=== PATIENT | female | born 1935 | race Caucasian/White ===

== ENCOUNTER 2022-10-19 13:48 | Emergency (ER) | payer MEDICARE, SELFPAY ==
[2022-10-19 14:05] VITALS: BP 137/77; PULSE 85; RESP 16; TEMP 37.1; O2SAT 93
--- NOTE | 2022-10-19 15:10 | ED.GENADUL_ITS ---
Discharge Plan Disposition Patient Disposition: Home Condition: Stable Discharge Details Clinical Impression: Well adult health check Primary Care Provider: Hortencia Jordan ED Provider: Dianna Delgado Home Meds and New Rx's Prescriptions: New azithromycin 250 mg tablet See Rx Instructions .ROUTE .COMPLEX 6 Days Qty: 6 0RF Rx Instructions: For 250 mg dose pack: take 500 mg today (day 1), then 250 mg for 4 days (days 2-5) Discharge Instructions Instructions: Cold Symptoms (ED) Additional Instructions: Only take the antibiotics if you begin having symptoms. Take [id number] vitamin C, multivitamin including zinc. Follow up with primary care provider in 3-5 days. Return to ED sooner if any worsening or concerns. Increase oral fluids. Referrals: Hortencia Jordan [Primary Care Provider] - 5 days Discharge Data Discharge Date/Time-TO BE ENTERED AT DEPARTURE: 10/19/22 15:35 Medical Decision Making 87-year-old female presents to the ER accompanied by her son with chief complaint of sick contacts. She has no symptoms at this time. Son wanted her checked out because he does not want her to get sick. Will prescribe patient azithromycin and to take only if symptoms begin. Family and patient verbalized understanding. This text was generated using Nanameue dictation system, please disregard any oddities of phrase or misspellings. HPI General Mode of arrival: ambulatory . Date/Time Provider Initiated Documentation: 10/19/22 13:49 . Limitations to Documentation: no limitations . Information obtained by: patient, family, RN notes reviewed and old records reviewed . HPI Narrative: 87-year-old female presents to the ER accompanied by her son with chief complaint of sick contacts. She has no symptoms at this time. Son wanted her checked out because he does not want her to get sick. She denies any cough body aches fever headache or any symptoms. Related Data Home Medications Medication Instructions Recorded Confirmed azithromycin 250 mg tablet See Rx Instructions PO .COMPLEX 6 10/19/22 days #6 tabs Previous Rx's Medication Instructions Recorded azithromycin 250 mg tablet See Rx Instructions PO .COMPLEX 6 10/19/22 days #6 tabs Allergies Allergy/AdvReac Type Severity Reaction Status Date / Time No Known Drug Allergies Allergy Unverified 10/19/22 14:09 General Stated Complaint: GenMedical KATARINA: 4 Review of Systems All systems reviewed & are unremarkable except as noted in HPI and below PFSH All Active Problems (Updated 10/19/22 @ 15:13 by Dianna Delgado NP) Well adult health check (Acute) Social History Smoking risk assessment performed?: No Exam Narrative Exam Narrative: Constitutional: Alert and oriented x3. Appears stated age. Normal body habitus. Head: Normocephalic, no trauma. Eyes: Pupils PERRL, Red reflex noted, EOM's intact. Eyelids symmetrical without lesions, discharge, or swelling. ENT: Bilateral TM's WNL, External ear normal to inspection, no mastoid TTP, swelling, or erythema, Nasal turbinates WNL, no nasal discharge. Normal dentition, Posterior pharynx WNL, no exudate. Chest: RRR, Normal S1, S2, distal pulses intact. Resp: Lungs clear to auscultation bilaterally, no wheezes, rales, or rhonchi. Abdomen: Soft, non-distended, Normoactive bowel sounds all 4 quads. Musculoskeletal: Normal gait, 5/5 strength to all four extremities. Skin: No suspicious rashes or lesions. Capillary refill less than 2 sec. Neurologic: Cranial nerves II-XII intact. Alert and oriented x 3. Motor: No deficits noted. Sensory: Intact bilaterally all 4 extremities. Reflexes: DTR's intact bilaterally.. Hematologic/Lymphatic: No ecchymosis, no lymphadenopathy. Course Vital Signs Vital signs: Vital Signs Temperature 37.1 C 10/19/22 14:05 Pulse 85 10/19/22 14:05 Respiratory Rate 16 10/19/22 14:05 Blood Pressure 137/77 10/19/22 14:05 Pulse Oximetry 93 10/19/22 14:05 Temperature 37.1 C 10/19/22 14:05 Pulse 85 10/19/22 14:05 Respiratory Rate 16 10/19/22 14:05 Respiratory Effort Normal 10/19/22 14:33 Respiratory Depth Normal 10/19/22 14:33 Respiratory Pattern Normal 10/19/22 14:33 Blood Pressure 137/77 10/19/22 14:05 Blood Pressure Position Sitting 10/19/22 14:05 Pulse Oximetry 93 10/19/22 14:05 Oxygen Delivery Method Room Air 10/19/22 14:05 Oxygen Flow Rate 0 10/19/22 14:05 Pain Level 0 10/19/22 14:05
== END 2022-10-19 15:35 | disposition home or self-care (01) ==
PROVIDERS: Emergency Provider Registered Nurse Emergency; PCP Nurse Practitioner
DX: Z71.1 Person with feared health complaint in whom no diagnosis is made (principal); Z20.89 Contact with and (suspected) exposure to other communicable diseases
CPT/HCPCS: 99283; 99282

== ENCOUNTER 2024-08-15 14:40 | Emergency (ER) | payer MEDICARE, MEDICAID, SELFPAY ==
[2024-08-15 14:44] VITALS: BP 142/73; PULSE 76; RESP 18; TEMP 36.4; O2SAT 98
--- NOTE | 2024-08-15 14:55 | W.ED.GENAD ---
Discharge Plan Disposition Patient Disposition: Home Condition: Stable Discharge Details Clinical Impression: Shingles Primary Care Provider: Hortencia Jordan ED Provider: Zhang Tejead Home Meds and New Rx's Prescriptions: New valacyclovir 1 gram tablet 1,000 mg PO TID 7 Days Qty: 21 0RF Discharge Instructions Instructions: Valacyclovir, Shingles Additional Instructions: You were seen in the ED for your shingles rash, I have sent a Rx of valtrex to [facility] in [place], please take this as directed, please keep the rash covered as it is contagious to those who are naive to Chicken pox virus/vaccine. Take Tylenol for pain, please return to the ED for severe worsening despite treatment, any lesions around the eyes, vision loss, disseminated rash, fever. Referrals: Hortencia Jordan [Primary Care Provider] - Discharge Data Discharge Date/Time-TO BE ENTERED AT DEPARTURE: 08/15/24 15:07 HPI General Date/Time Provider Initiated Documentation: 08/15/24 14:48. HPI Narrative: 89 year-old female presents to ED today by POV/wheelchair with her son with a chief complaint of vesicular rash on R upper arm with onset noted last night/today. Quality described as had some phantom pains in R lateral neck last night, then rash appeared, no radiation to vision changes, drainage, ear pain, facial droop. Severity is described as mild to moderate. Palliating factors include nothing specific attempted. Provoking factors include nothing specific. Patient not anticoagulated. Related Data Home Medications ?Medication ?Instructions ?Recorded ?Confirmed valacyclovir 1 gram tablet 1,000 mg PO TID shingles 7 days 08/15/24 #21 tabs Previous Rx's ?Medication ?Instructions ?Recorded valacyclovir 1 gram tablet 1,000 mg PO TID shingles 7 days 08/15/24 #21 tabs General Stated Complaint: RashLesion KATARINA: 3 Review of Systems All systems reviewed & are unremarkable except as noted in HPI and below Exam Narrative Exam Narrative: GENERAL APPEARANCE: Well-nourished, non-toxic, awake and alert, atraumatic, no acute distress. SKIN: Warm, pink, dry, intact, vesicular rash consistent with varicella on the right upper arm, no other lesions, no facial lesions or facial drooping, no serous drainage HEAD: Normocephalic, atraumatic, normal hair distribution for gender/age. EYES: Normal conjunctiva, no exudates on lids/lashes. ENT: Nares patent, no circumoral cyanosis, no facial swelling NECK: Supple, trachea midline, painless cervical ROM. LUNGS/CHEST: Non-labored respirations, normal A/P diameter, symmetrical expansion, no chest wall deformity HEART (CV/PV): No peripheral edema, no JVD. ABDOMEN: Soft, non-distended, no guarding. MSK: Normal ROM, no swelling/deformity to bilateral UEs or LEs, moving all extremities without weakness, no cyanosis, spine midline without tenderness, normal curvature. NEURO: Mental Status AAOx4 - alert to person, place, time, events No facial droop, no forehead involvement. Motor: No focal weakness - strength 5/5 in bilateral UEs and LEs, proximal and distal, symmetric. Sensory: sensation intact to light touch globally. Gait normal: patient ambulated without ataxia into ED room. PSYCH: euthymic, cooperative, pleasant, appropriate speech Course Vital Signs Vital signs: Vital Signs Temperature 36.4 C 08/15/24 14:44 Pulse 76 08/15/24 14:44 Respiratory Rate 18 08/15/24 14:44 Blood Pressure 142/73 H 08/15/24 14:44 Pulse Oximetry 98 08/15/24 14:44 Temperature 36.4 C 08/15/24 14:44 Temperature Source Oral 08/15/24 14:44 Pulse 76 08/15/24 14:44 Respiratory Rate 18 08/15/24 14:44 Blood Pressure 142/73 H 08/15/24 14:44 Blood Pressure Position Sitting 08/15/24 14:44 Pulse Oximetry 98 08/15/24 14:44 Oxygen Delivery Method Room Air 08/15/24 14:44 Oxygen Flow Rate 0 08/15/24 14:44 Medical Decision Making This dictation utilizes [id number] dictation software and may contain unedited grammatical errors. 89 year-old female presents to ED today by POV/wheelchair with her son with a chief complaint of vesicular rash on R upper arm with onset noted last night/today. Quality described as had some phantom pains in R lateral neck last night, then rash appeared, no radiation to vision changes, drainage, ear pain, facial droop. Severity is described as mild to moderate. Palliating factors include nothing specific attempted. Provoking factors include nothing specific. Patients' medical history: Noncontributory. Family and social history: Noncontributory. Pertinent exam findings / vital signs include diffuse vesicular rash to the right upper arm taking up at the lateral aspect between the bicep and tricep without any active serous drainage. Differential / pathologies of concern include cellulitis, shingles. Diagnostic studies of: -None. Interventions of: -Rx for Valtrex. ED Course/Assessment/Plan: 89-year-old female has a vesicular rash eruption at some point since last night, it is very consistent with shingles and I have prescribed her Valtrex, the patient and patient's son were counseled on strict return criteria for any vision changes or other emergent pathology or neurologic changes, high fever, facial droop but there is low chance of Attila Gee as it is not in that dermatome at this time, they did leave without paperwork. Findings not consistent with cellulitis, abscess, attila-gee. Disposition of Shingles. Patient verbalized understanding of the plan and return to ED criteria and engaged in shared decision making. Quality:SDOH Health Related Social Needs: No Data to Display PFSH All Active Problems (Updated 08/15/24 @ 14:55 by FABIANA Rosenberg) Shingles (Acute) Social History Smoking/Tobacco Use Status: Never Smoking risk assessment performed?: Yes Alcohol Intake: never Substance use type: does not use
--- OUTSIDE RECORDS SUMMARY | 2024-08-15 15:33 | XMS_ITS ---
Author Organization [facility] Address [address] [place] [id number] Care Team Providers Care Vending Machine Coin Collector Name Role Phone Wendy Doran Primary Care Provider [phone] Results Component Value Reference Range Notes URINE DIP IH Reviewed date:07/20/2024 01:46:57 PM Interpretation: Performing Lab: Notes/Report: Urine-Color yellow Appearance cloudy Specific [place] 1.015 pH 6.5 Glucose negative Protein 15 Occult Blood 5-10 Bilirubin negative Urobilinogen,Semi-Qn 0.2 Nitrite, Urine neg Ketones neg Leukocyte esterase neg URINALYSIS COMPLETE WITH REF JAYSON TO CULTURE Reviewed date:07/27/2024 10:03:10 AM Interpretation: Performing Lab:NL1, [facility] [id number] [place], [place] [id number] Bri Fortune M.D. Notes/Report: Received Date: NON-FASTING Received Date: NON-FASTING COLOR YELLOW YELLOW APPEARANCE CLEAR CLEAR SPECIFIC GRAVITY 1.018 1.001-1.035 PH 7.0 5.0-8.0 GLUCOSE NEGATIVE NEGATIVE BILIRUBIN NEGATIVE NEGATIVE KETONES NEGATIVE NEGATIVE OCCULT BLOOD NEGATIVE NEGATIVE PROTEIN NEGATIVE NEGATIVE NITRITE NEGATIVE NEGATIVE LEUKOCYTE ESTERASE NEGATIVE NEGATIVE WBC 0-5 < OR = 5 /HPF RBC NONE SEEN < OR = 2 /HPF SQUAMOUS EPITHELIAL CELLS 10-20 < OR = 5 /HPF BACTERIA NONE SEEN NONE SEEN /HPF HYALINE CAST NONE SEEN NONE SEEN /LPF NOTE This urine was analyzed for the presence of WBC, RBC, bacteria, casts, and other formed elements. Only those elements seen were reported. REFLEXIVE URINE CULTURE NO C ULTURE INDICATED REASON FOR VISIT Urine Sample Social History Sex Assigned At : Social History Observation Description Sex Assigned At Female Encounters Encounter Location Date Provider Diagnosis [facility] [address] [place] [address] 07/20/2024 Wendydonald Doran UTI (urinary tract infection) N39.0 Assessments Encounter Date Diagnosis (ICD Code) Assessment Notes Treatment Notes Treatment Clinical Notes Section Notes 07/20/2024 UTI (urinary tract infection) (ICD-10 - N39.0) Plan Of Treatment Next Appt Details Provider Name:Wendy Doran , 10/20/2024 12:00:00 PM, [address] [facility], [place], [address], Progress Notes * Wendy OLVERADOB:1935 (89 yo F)Acc No.[id number]:07/20/2024 Progress Note Patient:?Wendy OLVERA Provider:?Wendy Doran MD :1935???Age:89 Y???Sex:Female D ate:07/20/2024 Address[address] Subjective: * Chief Complaints: * ???1. Urine Sample. * Medical History:? Objective: * Vitals:? Assessment: * Assessment: 1.?UTI (urinary tract infect ion) - N39.0 (Primary)??? Plan: * Treatment: ? Value Reference Range ?Urine-Color yellow * ?Appearance cloudy * ?Specific [place] 1.015 * ?pH 6.5 * ?Glucose negative * ?Protein 15 * ?Occult Blood 5-10 * ?Bilirubin negative * ?Urobilinogen,Semi-Qn 0.2 * ?Nitrite, Urine neg * ?Ketones neg * ?Leukocyte esterase neg * Procedure Codes:?36991 URINE -NO MICRO (Urine Dip Stick), 89054 SPECIMEN HANDLING * * Sign off status: Completed true * Provider:?Wendy Doran MD Date:?07/20 Generated for Balbina celestin/Cait/Chiquis on:?08/15/2024 03:33 PM EST
--- OUTSIDE RECORDS SUMMARY | 2024-08-15 15:33 | XMS_ITS ---
Author Organization [facility] Address [address], [place] [id number] Care Team Providers Care Beer Runner Name Role Phone Wendy Doran Primary Care Provider REASON FOR VISIT Urine Sample Social History Sex Assigned At : Social History Observation Description Sex Assigned At Female Encounters Encounter Location Date Provider Diagnosis [address] [id number] 07/20/2024 Wendy Doran UTI (urinary tract infection) N39.0 Assessments Encounter Date Diagnosis (ICD Code) Assessment Notes Treatment Notes Treatment Clinical Notes Section Notes 07/20/2024 UTI (urinary tract infection) (ICD-10 - N39.0) Plan Of Treatment Next Appt Details Provider Name:Wendy Doran , 10/20/2024 12:00:00 PM, [address] [place], [address], Progress Notes * WADELyndseydonaldDOB:1935 (89 yo F)Acc No.[id number]:07/20/2024 Progress Note Patient:?Lyndsey OLVERAricia Provider:?Wendy Doran MD :1935???Age:89 Y???Sex:Female D ate:07/20/2024 Address[address] [id number] Subjective: * Chief Complaints: * ???1. Urine Sample. * Medical History:? Objective: * Vitals:? Assessment: * Assessment: 1.?UTI (urinary tract infect ion) - N39.0??? Plan: * Treatment: * Procedure Codes:?91659 URINE -NO MICRO (Urine Dip Stick), 21591 SPECIMEN HANDLING * * Electronic signature of Joan Doran MD on 08/15/2024 at 03:33 PM EST Sign off status: Pending * Provider:?Wendy Doran MD Date:?07/20 Generated for Balbina celestin/Cait/eTransmitting on:?08/15/2024 03:33 PM EST
--- OUTSIDE RECORDS SUMMARY | 2024-08-15 15:34 | XMS_ITS | Encounter Summary ---
Author Organization [facility] [place] [address] Care Team Providers Care Floor Plan Adjuster Name Role Phone Unavailable Primary Care Provider Unavailabl e Encounter Details Date Type Department Care Team (Latest Contact Info) Description 02/07/2023 2:11 PM EDT - 02/07/2023 11:59 PM EDT [place] [phone] Discharge Disposition: Home Social History Tobacco Use Types Packs/Day Years Used Date Smoking Tobacco: Never Assessed Sex and Gender Information Value Date Recorded Sex Assigned at Not on file Gender Identity Not on file Sexual Orientation Not on file documented as of this encounter Medications at Time of Discharge Medication Sig Dispensed Refills Start Date End Date OLANZapine (ZyPREXA) 2.5 mg tablet Take 2.5 mg by mouth nightly. 08/18/2021 acetaminophen (Tylenol) 500 mg tablet Take 2 tablets by mouth 3 times daily as needed for Pain. 30 tablet 1 02/04/2023 albuteroL 90 mcg/actuation HFA Aerosol Inhaler Inhale 2 puffs into the lungs every 4 hours as needed for Wheezing. Use with spacer 1 each 1 02/04/2023 cholecalciferol (Vitamin D3) 1,000 unit tablet Take 1 tablet by mouth daily. 90 tablet 3 02/04/2023 cyanocobalamin, Vitamin B-12, (Vitamin B-12) 1,000 mcg tablet Take 1 tablet by mouth daily. 60 tablet 3 02/04/2023 mirtazapine (Remeron) 7.5 mg tablet Take 1 tablet by mouth nightly. 02/04/2023 ondansetron ODT (Zofran-ODT) 4 mg disintegrating tablet Take 1 tablet by mouth every 8 hours as needed for Nausea. 20 tablet 02/04/2023 gabapentin (Neurontin) 300 mg capsule Take 1 capsule by mouth 3 times daily. 90 capsule 12 02/04/2023 02/20/2023 QUEtiapine (SEROquel) 25 mg tablet Take 1 tablet by mouth 2 times daily. May also take 1 tablet daily as needed. 60 tablet 02/04/2023 02/16/2023 documented as of this encounter Plan of Treatment Not on file documented as of this encounter Procedures Procedure Name Priority Date/Time Associated Diagnosis Comments HEMOGRAM STAT 02/07/2023 12:45 PM EDT DIFFERENTIAL, AUTOMATED STAT 02/07/2023 12:45 PM EDT TSH STAT 02/07/2023 12:45 PM EDT VITAMIN B12 STAT 02/07/2023 12:45 PM EDT COMPREHENSIVE METABOLIC PANEL STAT 02/07/2023 12:45 PM EDT documented in this encounter Results * Differential, Automated (02/07/2023 12:45 PM EDT) Neutrophil % 54.0 % [facility] Neutrophil Absolute 3.69 1.70 - 6.10 x10(3)/[facility] Lymph % 31.4 % [facility] Lymphocytes Abs 2.2 0.9 - 3.2 x10(3)/[facility] Monocyte % 10.2 % [facility] Monocyte Abs 0.7 0.3 - 0.9 x10(3)/[facility] Eos % 3.4 % [facility] Eosinophils Abs 0.2 0.0 - 0.4 x10(3)/[facility] Basophil % 0.4 % [facility] Baso Absolute 0.0 0.0 - 0.1 x10(3)/[facility] Immature Gran % 0.60 % [facility] Comment: Immature granulocytes(IG's)percentage and absolute count will include metamyelocytes, myelocytes, and promyelocytes. Blood smears from CBCs yielding IG's will be scanned manually for concordance. If this scan disagrees with the automated IG or if promyelocytes are noted, a manual differential will be performed. Immature Gran Absolute 0.04 0.00 - 0.04 x10(3)/mcL [facility] Blood Venous Draw / Unknown 02/07/2023 12:45 PM EDT 02/07/2023 2:47 PM EDT Narrative Resulting Agency Comment Spec In Lab Vic Jimenes MD HEMATOLOGY ORDERABLE S Performing Organization Address City/[facility]/ZIP Co de Phone Number [facility] [place] [address] * (ABNORMAL) Vitamin B12 (02/07/2023 12:45 PM EDT) Vitamin B12 >2,000(H) 232 - 1,245 pg/mL [facility] Blood Venous Draw / Unknown 02/07/2023 12:45 PM EDT 02/07/2023 2:47 PM EDT Narrative Resulting Agency Comment Spec In Lab Vic Jimenes MD CHEMISTRY ORDERABLES Performing Organization Address City/[facility] Co de Phone Number [facility] [place] [address] * (ABNORMAL) Hemogram (02/07/2023 12:45 PM EDT) White Blood Cell 6.8 4.0 - 9.5 x10(3)/mc L [facility] Red Blood Cell 3.73(L) 4.00 - 5.21 x10(6)/mc L [facility] Hemoglobin 11.8 11.7 - 15.5 g/dL [facility] Hematocrit 36.8 35.7 - 45.8 % [facility] Mean Cell Volume 98.7(H) 82.6 - 94.4 fL [facility] Mean Cell Hemoglobin 31.6 27.1 - 32.0 pg [facility] Mean Cell Hemoglobin Concentration 32.1 31.7 - 35.0 g/dL [facility] Platelet 235 145 - 357 x10(3)/mc L [facility] RDW Standard Deviation 48.7(H) 37.0 - 46.0 fL [facility] RDW coefficient of variation 13.6 11.5 - 14.1 % [facility] Mean Platelet Volume 9.1 7.6 - 12.9 fL [facility] NRBC% auto 0.0 % [facility] NRBC Absolute 0.000 0.000 - 0.000 x10(3)/mc L [facility] Blood Venous Draw / Unknown 02/07/2023 12:45 PM EDT 02/07/2023 2:47 PM EDT Narrative Resulting Agency Comment Spec In Lab Vic Jimenes MD HEMATOLOGY ORDERABLE S Performing Organization Address City/[facility] Co de Phone Number [facility] [place] [address] * TSH (02/07/2023 12:45 PM EDT) Thyroid Stimulating Hormone 3.25 0.27 - 4.20 mcIU/mL [facility] Comment: Reference Interval (mcIU/mL): Females: ??First Trimester: 0.23-3.88 ??Second Trimester: 0.22-3.90 ??Third Trimester: 0.44-4.66 Blood Venous Draw / Unknown 02/07/2023 12:45 PM EDT 02/07/2023 2:46 PM EDT Narrative Resulting Agency Comment Spec In Lab Vic Jimenes MD CHEMISTRY ORDERABLES Performing Organization Address City/[facility]/ZIP Co de Phone Number [facility] [place] [address] * (ABNORMAL) Comprehensive metabolic panel (non-fasting) (02/07/2023 12:45 PM EDT) Glucose 133 65 - 199 mg/dL [facility] Comment:Diabetes: >=200 mg/d L plus symptoms Blood Urea Nitrogen 14 8 - 18 mg/dL [facility] Creatinine 0.82 0.70 - 1.20 mg/dL [facility] Sodium 140 135 - 145 mmol/L [facility] Potassium 3.8 3.5 - 5.0 mmol/L [facility] Comment: Please note: ??Patients with WBC >100,000 may have falsely elevated Potassium levels. ??For accurate Potassium quantification in these patients send serum separator tube (gold top) for subsequent determinations. ??Contact the Clinical Chemistry Laboratory if there are any questions. Chloride 104 98 - 107 mmol/L [facility] Carbon Dioxide 27 22 - 31 mmol/L [facility] Anion Gap 9 5 - 15 mmol/L [facility] Calcium 9.0 8.5 - 10.5 mg/dL [facility] Protein, Total 6.0(L) 6.1 - 8.0 g/dL [facility] Albumin 3.7 3.2 - 5.2 g/dL [facility] Aspartate Aminotransferase 15 0 - 30 unit/L [facility] Alanine Aminotransferase 9 0 - 30 unit/L [facility] Alkaline Phosphatase 183(H) 35 - 105 unit/L [facility] Bilirubin, Total 0.4 0.2 - 1.3 mg/dL [facility] Est Glomerular Filtration Rate 70 >=60 mL/min/1. 73 m?? [facility] Comment: This patient's estimated GFR was calculated using the 2020 CKD-EPI equation. The estimated GFR can vary from the measured GFR by up to 30% in the absence of rapidly changing kidney function. Assessment of the estimated GFR is not appropriate when creatinine concentrations are rapidly changing. For clinical situations in which a more precise estimate of GFR is necessary, consider alternative methods of GFR estimation such as a 24-hour urine creatinine clearance. Assignment of CKD stage 1-5 for patients with an eGFR near the transition point between stages may be based on clinical assessment of muscle mass and symptoms in addition to eGFR. Blood Venous Draw / Unknown 02/07/2023 12:45 PM EDT 02/07/2023 2:46 PM EDT Narrative Resulting Agency Comment Spec In Lab Vic Jimenes MD CHEMISTRY ORDERABLES [facility] [place] [address] documented in this encounter Visit Diagnoses Not on filedocumented in this encounter
--- OUTSIDE RECORDS SUMMARY | 2024-08-15 15:34 | XMS_ITS | Encounter Summary ---
Author Organization [facility] [place] [address] Care Team Providers Care Pipeline Superintendent Division Name Role Phone Unavailable Primary Care Provider Unavailabl e Encounter Details Date Type Department Care Team ([facility] st Contact Info) Description 02/20/2024 Interpretation Only [address] [phone] Abelino Laws MD [address] [place] [address] Social History Tobacco Use Types Packs/Day Years Used Date Smoking Tobacco: Never Smokeless Tobacco: Never DH IPV Inpatient Questions Answer Date Recorded Does Anyone Try to Keep You From Having Contact with Others or Doing Things Outside Your Home? no 03/10/2023 Feels Threatened by Someone no 02/11 Feels Unsafe at Home or Work/School no 03/10/2023 Physical Signs of Abuse Present no 03/10/2023 Sex and Gender Information Value Date Recorded Sex Assigned at Not on file Gender Identity Not on file Sexual Orientation Not on file documented as of this encounter Plan of Treatment Not on file documented as of this encounter Procedures Procedure Name Priority Date/Time Associated Diagnosis Comments CT FACE WO CONTRAST STAT 02/20/2024 7 :47 PM EDT documented in this encounter Results * CT Face wo Contrast (02/20/2024 7:47 PM EDT) PT CLASS E DH RAD ADMITDTTM [id number] RAD PT [facility] MD INFO [id number]^Broadw ater^Abelino^Lenny k RAD EXAM DESC CTFACEWO^CT Maxillofacial w/o Contrast^RIS [facility] WORKSTATION ID [id number] [facility] Anatomical Region Laterality Modality Head Computed Tomogra phy 02/20/2024 7:17 PM EDT Impressions 02/20/2024 8:08 PM EDT No evidence of acute intracranial pathology or acute posttraumatic findings. No facial bone fractures. Thank you for letting us participate in the care of this patient. ??If you are a health care provider and have any questions regarding this report, please contact the number below. ??For patients who have questions please contact the health career center advisor that requested your imaging first. ? Electronically signed by: Adiel Candelario DO [facility] ??([phone]), at 02/20/2024 8:08 PM Narrative 02/20/2024 8:08 PM EDT EXAMINATION: CT Head w/o Contrast, CT Maxillofacial w/o Contrast CLINICAL HISTORY: fall TECHNIQUE: CT head and facial bones performed without intravenous contrast administration. COMPARISON: CT of the head 02/05/2022 FINDINGS: CT HEAD: There is no acute intracranial hemorrhage or mass effect. There is no extra axial collection or ventricular dilation. There is no acute confluent ischemic infarct. Similar bifrontal encephalomalacia. There is no calvarial or skull base fracture noted. Mastoids, middle ear spaces and imaged paranasal sinuses are normally aerated. CT FACIAL BONES: No facial bone fracture or significant soft tissue injury identified. Prominent dental caries and periodontal disease noted. Bilateral TMJ arthritis. Procedure Note dAiel Candelario DO - 02/20/2024 EXAMINATION: CT Head w/o Contrast, CT Maxillofacial w/o Contrast CLINICAL HISTORY: fall TECHNIQUE: CT head and facial bones performed without intravenous contrastadministration. COMPARISON: CT of the head 02/05/2022 FINDINGS: CT HEAD: There is no acute intracranial hemorrhage or mass effect. There is noextra axial collection or ventricular dilation. There is no acute confluentischemic infarct. Similar bifrontal encephalomalacia. There is no calvarial or skull base fracture noted. Mastoids, middle ear spaces and imaged paranasal sinuses are normallyaerated. CT FACIAL BONES: No facial bone fracture or significant soft tissue injury identified.Prominent dental caries and periodontal disease noted. Bilateral TMJ arthritis. IMPRESSION No evidence of acute intracranial pathology or acute posttraumaticfindings. No facial bone fractures. Thank you for letting us participate in the care of this patient. If youare a health care provider and have any questions regarding this report,please contact the number below. For patients who have questions please contactthe health career center advisor that requested your imaging first. Electronically signed by: Adile Candelario DO, [facility]([phone]), at 02/20/2024 8:08 PM Abelino Laws MD IMTawnya CT ORDERABLES documented in this encounter Visit Diagnoses Not on filedocumented in this encounter
--- OUTSIDE RECORDS SUMMARY | 2024-08-15 15:34 | XMS_ITS | Encounter Summary ---
Author Organization [facility] [place] [address] Care Team Providers Care Electric Truck Driver Name Role Phone Unavailable Primary Care Provider Unavailabl e Encounter Details Date Type Department Care Team (Late st Contact Info) Description 02/15/2023 9:30 AM EDT SNF Visit [facility] [address] [place] [phone] Aimee Neely APRN Closed fracture of right inferior pubic ramus, with routine healing, subsequent encounter (Primary Dx); Physical deconditioning; Depression, unspecified depression type; Dementia with behavioral disturbance; Primary hypertension Social History Tobacco Use Types Packs/Day Years Used Date Smoking Tobacco: Never Assessed Sex and Gender Information Value Date Recorded Sex Assigned at Not on file Gender Identity Not on file Sexual Orientation Not on file documented as of this encounter Last Filed Vital Signs Vital Sign Reading Time Taken Comments Blood Pressure 138/72 02/15/2023 11:38 AM EDT Pulse 60 02/15/2023 11:38 AM EDT Temperature 36.4 ??C (97.5 ??F) 02/15/2023 11:38 AM E DT Respiratory Rate 16 02/15/2023 11:38 AM EDT Oxygen Saturation 95% 02/15/2023 11:38 AM EDT Inhaled Oxygen Concentration - - Weight 81.9 kg (180 lb 9.6 oz) 02/15/2023 11:38 AM EDT Height - - Body Mass Index - - documented in this encounter Progress Notes * Aimee Neely APRN - 02/15/2023 9:30 AM EDT [facility] PROBLEM FOCUS FOLLOW UP [facility] Today: 02/15/23 Subjective: Chief Complaint / Reason for Visit: Routine weekly visit History of Present Illness: 88 year old female at [facility] for post acute care after hospitalization at [facility] after a fall where she suffered a right superior and inferior pubic rami fracture. PMH is significant for dementia with behavioral disturbance, COPD, falls, HLD, DM 2, HTN. At [facility] for post acute care including short term rehab. Last week treated for dental abscess with oral antibiotics. Antibiotic course done soon. No further symptoms of dental abscess. Minimal pain from fractures. Participating in PT/OT-making gains. Still with some wandering but usually responds to gentle redirection. Has been refusing her midnight dose of Seroquel much of the time. Behavior stable on current adherence to rest of doses during the day. Discussed possible GDR of Seroquel with Dr. Vic Jimenes. Overall improving. Seen today for routine weekly visit. Medications 02/16/23 1215 Medication Sig Taking? QUEtiapine (SEROquel) 25 mg tablet Take 1 tablet by mouth 4 times daily. May also take 1 tablet daily as needed. acetaminophen (Tylenol) 500 mg tablet Take 2 tablets by mouth 3 times daily as needed for Pain. albuteroL 90 mcg/actuation HFA Aerosol Inhaler Inhale 2 puffs into the lungs every 4 hours as needed for Wheezing. Use with spacer cholecalciferol (Vitamin D3) 1,000 unit tablet Take 1 tablet by mouth daily. cyanocobalamin, Vitamin B-12, (Vitamin B-12) 1,000 mcg tablet Take 1 tablet by mouth daily. gabapentin (Neurontin) 300 mg capsule Take 1 capsule by mouth 3 times daily. mirtazapine (Remeron) 7.5 mg tablet Take 1 tablet by mouth nightly. ondansetron ODT (Zofran-ODT) 4 mg disintegrating tablet Take 1 tablet by mouth every 8 hours as needed for Nausea. ROS: See HPI Objective: BP 138/72 Pulse 60 Temp 36.4 ??C (97.5 ??F) Resp 16 Wt 81.9 kg (180 lb 9.6 oz) SpO2 95% Physical Exam Constitutional: General: She is not in acute distress. Appearance: She is not ill-appearing. HENT: Head: Normocephalic. Cardiovascular: Rate and Rhythm: Normal rate. Skin: General: Skin is warm. Coloration: Skin is not jaundiced. Neurological: Mental Status: She is alert. Mental status is at baseline. Assessment and Plan: Assessment / Plan: Dementia with behavioral disturbance - Doing well on Seroquel 4 times a day as she has been refusing midnight dose - Will do GDR and decrease Seroquel to q 6 hours and monitor for effect - Continue supportive care - Encourage diversional activities Depression - Stable on current mirtazapine - Continue supportive care Essential hypertension - At goal with current treatment Closed fracture of right inferior pubic ramus with routine healing Physical deconditioning - Pain under control with prn Tylenol and scheduled gabapentin - Continue PT/OT-making gains - Continue discharge planning Follow Up: next week and prn 30 minutes of this 30 minute visit was spent counseling and/or coordinating with nursing staff, patient and/or family regarding evaluation of current orders and plan. Time spent in supportive listening. No future appointments. documented in this encounter Plan of Treatment Not on file documented as of this encounter Visit Diagnoses Diagnosis Closed fracture of right inferior pubic ramus, with routine healing, subsequent encounter- Primary Physical deconditioning Debility, unspecified Depression, unspecified depression type Dementia with behavioral disturbance Dementia, unspecified, with behavioral disturbance Primary hypertension Unspecified essential hypertension documented in this encounter
--- OUTSIDE RECORDS SUMMARY | 2024-08-15 15:34 | XMS_ITS | Encounter Summary ---
[place] [address] Care Team Providers Care Infection Preventionist Name Role Phone Unavailable Primary Care Provider Unavailabl e Encounter Details Date Type Department Care Team (Late st Contact Info) Description 09/25/2023 Orders [place] [phone] Meño Temple MD [facility] [place] [address] Pain in both knees, unspecified chronicity Social History Tobacco Use Types Packs/Day Years Used Date Smoking Tobacco: Never Smokeless Tobacco: Never [facility] Inpatient Questions Answer Date Recorded Does Anyone [...] as of this encounter Visit Diagnoses Diagnosis Pain in both knees, unspecified chronicity documented in this encounter
--- OUTSIDE RECORDS SUMMARY | 2024-08-15 15:34 | XMS_ITS | Encounter Summary ---
[place] [address] Care Team Providers Care Desulfurizer Operator Name Role Phone Unavailable Primary Care Provider Unavailabl e Encounter Details Date Type Department Care Team (Late st Contact Info) Description 03/11/2023 Telephone Emergency Services at [address] [phone] Maryam Jacob RN Social History Tobacco Use Types Packs/Day Years [...] on file documented as of this encounter Miscellaneous Notes * Telephone Encounter - Maryam Jacob RN - 03/11/2023 4:08 PM EDT The patients son called multiple times to the ED requesting information on his mothers care at the ED. After identifying the patient with two identifiers and after receiving consent from the patient to give her son any information about her care that was requested. The sons questions were answered and he was grateful. documented in this encounter Plan of Treatment Not on file documented as of this encounter Visit Diagnoses Not on filedocumented in this encounter
--- OUTSIDE RECORDS SUMMARY | 2024-08-15 15:34 | XMS_ITS | Encounter Summary ---
Author Organization [facility] Address [facility] [place] [address] Care Team Providers Care Spreader Operator Automatic Name Role Phone Unavailable Primary Care Provider Unavailabl e Encounter Details Date Type Department Care Team (Late st Contact Info) Description 02/04/2023 3:00 PM EDT SNF Visit [facility] [address] [place] [address] Vic Jimenes MD [facility] [place] [address] Dementia with behavioral disturbance; Essential hypertension; Closed fracture of right inferior pubic ramus with routine healing, subsequent encounter Social History Tobacco Use Types Packs/Day Years Used Date Smoking Tobacco: Never Assessed Sex and Gender Information Value Date Recorded Sex Assigned at Not on file Gender Identity Not on file Sexual Orientation Not on file documented as of this encounter Last Filed Vital Signs Vital Sign Reading Time Taken Comments Blood Pressure 150/76 02/04/2023 1:57 PM EDT Pulse 71 02/04/2023 1:57 PM EDT Temperature 36.7 ??C (98 ??F) 02/04/2023 1:57 PM EDT Respiratory Rate 19 02/04/2023 1:57 PM EDT Oxygen Saturation 96% 02/04/2023 1:57 PM EDT Inhaled Oxygen Concentration - - Weight 82.6 kg (182 lb 3.2 oz) 02/04/2023 1:57 P M EDT Height - - Body Mass Index - - documented in this encounter Miscellaneous Notes * SNF Admit - Vic Jimenes MD - 02/04/2023 3:00 PM EDT [facility] ADMISSION [facility] Nursing Facility Date: 02/04/23 Subjective: HPI / Events Leading to SNF Admission: Wendy Olvera is a 87 y.o. female with a h/o dementia, COPD, falls, HLD, DM2, HTN admitted to [facility] after [facility] with R superior and infreior pubic Rami fractures.Admitted for PT/OT there and now here for short term rehab. Had been generally stable on her home dose of seroquel with occ prn needs. Patient Concerns: none There is no problem list on file for this patient. Medications 02/04/23 9074 Medication Sig Taking? acetaminophen (Tylenol) 500 mg tablet Take 2 [...] every 8 hours as needed for Nausea. QUEtiapine (SEROquel) 25 mg tablet Take 1 tablet by mouth 2 times daily. May also take 1 tablet daily as needed. Not on File PCP: Hortencia Jordan APRN ADLs Independent Supervision One Assist Two Assist Full Dependence Bathing [] [] [x] [] [] Dressing [] [] [x] [] [] Transfers [] [] [] [] [x] Ambulation [] [] [] [] [x] Toileting [] [] [] [] [x] Feeding [x] [] [] [] [] Social History Social History Social History Narrative Not on file Advance Directives Code Status: Full Code DPOA: Name: Marlon Olvera Alternate Name: Alternate Phone: Activated (if yes explain): Yes POLST/COLST: No; If yes: Full Treatment Hospitalizations: Hospitalize, Unlimited Interventions Hospice (if yes identify agency and diagnosis): No Overall Strength / Endurance: Frail Ambulation [] No Assist Device, [] Walker, [] Cane, [x] Wheelchair, [] Bed bound [] Recent Falls [] Unsteady gait or gait disturbances Rehabilitation Services [x] PT, [x] OT, [] BILLIARD PARLOR MANAGER Pain [] Yes [] No If yes: Location: Pain Regimen: Overall pain control is [] Poor, [] Good Appetite [] Improved, [x] Satisfactory, [] Decline [] Currently on protein or calorie supplement [] Aspiration risk [] Diet: regular Weight Wt Readings from Last 3 Encounters: 02/04/23 82.6 kg (182 lb 3.2 oz) Bowel Function [] Constipated [] Diarrhea [x] Incontinent [] Continent []Ostomy Bladder Function [] Retention [x] Incontinent [] Continent [] Indwelling Catheter [] Intermittent Catheter Skin Concerns: None Cognitive Status: Decline. Degree of impairment: Moderate Behavioral/Psychiatric Concerns [] Aggression [] Agitation [] Sundowning [] Insomnia [] Depression [] Hallucinations [] Delusions [] Paranoia [] Anxiety [] Hypersexuality [] No issues ROS as reported by: [x] Nursing staff, [] Resident PSYCHOTROPIC MEDICATIONS: Scheduled On: Seroquel,remeron Indication:dementia, depression Dose reduction or discontinuation is not indicated at this time. The benefits of these medication(s) outweigh any associated risk. HOSPICE PATIENTS: Patient is on hospice care with decline anticipated and significant likelihood ofanxiety and agitation. Continued availability of these medications is indicated to ensure rapid access to comfort medications in the case of need. Will reevaluate the continued use of these medication(s) within 30d Objective: BP 150/76 Pulse 71 Temp 36.7 ??C (98 ??F) Resp 19 Wt 82.6 kg (182 lb 3.2 oz) SpO2 96% Physical Exam Vitals reviewed. Constitutional: General: She is not in acute distress. Appearance: Normal appearance. HENT: Head: Normocephalic and atraumatic. Mouth/Throat: Mouth: Mucous membranes are moist. Pharynx: No oropharyngeal exudate. Eyes: General: No scleral icterus. Conjunctiva/sclera: Conjunctivae normal. Pupils: Pupils are equal, round, and reactive to light. Cardiovascular: Heart sounds: Normal heart sounds. No murmur heard. Pulmonary: Effort: Pulmonary effort is normal. No respiratory distress. Breath sounds: No wheezing, rhonchi or rales. Abdominal: General: There is no distension. Palpations: Abdomen is soft. Tenderness: There is no abdominal tenderness. Musculoskeletal: Cervical back: Normal range of motion and neck supple. Right lower le+ Edema present. Left lower le+ Edema present. Skin: General: Skin is warm. Neurological: General: No focal deficit present. Mental Status: She is alert. Comments: Oriented to self only Psychiatric: Mood and Affect: Mood normal. Thought Content: Thought content normal. Labs No results found for: WBC, HGB, HCT, MCV, PLATELET No results found for: ALT, AST, GGT, ALKPHOS, BILITOT, BILIDIR, ALBUMIN, PROT No results found for: TSH No results found for: HA1C No results found for: [id number] Assessment and Plan: Assessment / Plan: Diagnoses and all orders for this visit: Dementia with behavioral disturbance Essential hypertension Closed fracture of right inferior pubic ramus with routine healing, subsequent encounter Other orders - acetaminophen (Tylenol) 500 mg tablet; Take 2 tablets by mouth 3 times daily as needed for Pain. - albuteroL 90 mcg/actuation HFA Aerosol Inhaler; Inhale 2 puffs into the lungs every 4 hours as needed for Wheezing. Use with spacer - cholecalciferol (Vitamin D3) 1,000 unit tablet; Take 1 tablet by mouth daily. - cyanocobalamin, Vitamin B-12, (Vitamin B-12) 1,000 mcg tablet; Take 1 tablet by mouth daily. - gabapentin (Neurontin) 300 mg capsule; Take 1 capsule by mouth 3 times daily. - mirtazapine (Remeron) 7.5 mg tablet; Take 1 tablet by mouth nightly. - ondansetron ODT (Zofran-ODT) 4 mg disintegrating tablet; Take 1 tablet by mouth every 8 hours as needed for Nausea. - QUEtiapine (SEROquel) 25 mg tablet; Take 1 tablet by mouth 2 times daily. May also take 1 tablet daily as needed. Will do PT for pelvic fracture, not in pain Continue seroquel for now and will address dosing over the next week to see if it can be reduced. Will need family meeting for C Follow Up: 1 week Priority of scheduling post-admit meeting to discuss Advance Care Planning is: Desc; low/medium/high: medium 35 minutes of this 35 minute visit was spent counseling and/or coordinating with nursing staff, patient and/or family regarding evaluation of current orders and plan. Future Appointments Date Time Provider Department Center 02/04/2023 3:00 PM Vic Jimenes MD [facility] None documented in this encounter Plan of Treatment Not on file documented as of this encounter Visit Diagnoses Diagnosis Dementia with behavioral disturbance Dementia, unspecified, with behavioral disturbance Essential hypertension Unspecified essential hypertension Closed fracture of right inferior pubic ramus with routine healing, subsequent encounter documented in this encounter
--- OUTSIDE RECORDS SUMMARY | 2024-08-15 15:34 | XMS_ITS | Clinical Summary ---
Author Organization [facility] Address [facility] [place] [address] Care Team Providers Care Hris Analyst Name Role Phone Unavailable Primary Care Provider Unavailabl e Allergies No known active allergies Medications Medication Sig Dispensed Refills Start Date End Date Status acetaminophen (Tylenol) 500 mg tablet Take 2 tablets by mouth 3 times daily as needed for Pain. 30 tablet 1 02/04/2023 Active albuteroL 90 mcg/actuation HFA Aerosol Inhaler Inhale 2 puffs into the lungs every 4 hours as needed for Wheezing. Use with spacer 1 each 1 02/04/2023 Active cholecalciferol (Vitamin D3) 1,000 unit tablet Take 1 tablet by mouth daily. 90 tablet 3 02/04/2023 Active cyanocobalamin, Vitamin B-12, (Vitamin B-12) 1,000 mcg tablet Take 1 tablet by mouth daily. 60 tablet 3 02/04/2023 Active mirtazapine (Remeron) 7.5 mg tablet Take 1 tablet by mouth nightly. 02/04/2023 Active ondansetron ODT (Zofran-ODT) 4 mg disintegrating tablet Take 1 tablet by mouth every 8 hours as needed for Nausea. 20 tablet 02/04/2023 Active gabapentin (Neurontin) 300 mg capsule Take 2 capsules by mouth 3 times daily. 90 capsule 12 02/20/2023 Active QUEtiapine (SEROquel) 25 mg tablet Take 1 tablet by mouth 3 times daily. Take 25mg at 8 am, and 11 am, take 50mg at 3 pm and 25 mg hs, she can take 25mg at 1pm prn 60 tablet 02/25/2023 Active OLANZapine (ZyPREXA) 2.5 mg tablet Take 2.5 mg by mouth nightly. 08/18/2021 Active pravastatin (Pravachol) 20 mg tablet Take 20 mg by mouth nightly. Active cephALEXin (Keflex) 500 mg capsule Take 1 capsule by mouth 4 times daily. 40 capsule 03/10/2023 Active Active Problems Patient Care Coordination No te Formatting of this note migh t be different from the original. Advance Directives Code Status: Full Code DPOA: Name: Marlon Olvera Alternate Name: Alternate Phone: Activated (if yes explain): Yes POLST/COLST: No; If yes: Full Treatment Hospitalizations: Hospitalize, Unlimited Interventions Hospice (if yes identify agency and diagnosis): No Problem Noted Date Diagnosed Date Depression 02/17/2023 Dementia with behavioral disturbance 02/17/2023 Hypertension 02/17/2023 Closed fracture of right inf erior pubic ramus, with routine healing, subsequent encounter 02/17/2023 Encounters Date Type Department Care Team Description 08/04/2024 Transcribe Orders eDH Incoming Referrals [phone] Visiting [facility], [facility] Debility (Primary Dx) from Last 3 Months Social History Tobacco Use Types Packs/Day Years Used Date Smoking Tobacco: Never Smokeless Tobacco: Never Tobacco Cessation:Counseling Given: Not Answered [facility] Inpatient Questions Answer Date Recorded Does Anyone [...] on file Sexual Orientation Not on file Last Filed Vital Signs Vital Sign Reading Time Taken Comments Blood Pressure 165/74 03/10/2023 9:07 PM EDT Pulse 80 03/10/2023 9:07 PM EDT Temperature 36.3 ??C (97.3 ??F) 03/10/2023 7:09 PM ED T Respiratory Rate 16 03/10/2023 9:07 PM EDT Oxygen Saturation 95% 03/10/2023 9:07 PM EDT Inhaled Oxygen Concentration - - Weight 81.6 kg (180 lb) 03/10/2023 7:09 PM EDT Height - - Body Mass Index - - Plan of Treatment Health Maintenance Due Date Last Done Comments Tetanus/Diphtheria/Pertussis Vaccines (1 - Tdap) 02/08 Pneumoccocal Vaccine: 65+ (1 of 1 - PCV) 1987 Zoster vaccine (1 of 2) 1987 Advance Directive 02/09/1992 Bone Density Scan 2002 RSV Vaccine (1 - 1-dose 75+ series) 02/09/2012 Covid-19 Vaccine (2 - 2023- season) 04/12/202412/2020 Influenza (Flu) vaccine (1 o f 1 - Influenza standard series) 04/12/2024
--- OUTSIDE RECORDS SUMMARY | 2024-08-15 15:34 | XMS_ITS | Encounter Summary ---
Author Hub Preferred Language Kinyarwanda Marital Status Unknown Yarsanism Affiliation Unknown Race Unknown Ethnic Group Not or [place] [address] Care Team Providers Care Torque Tester Name Role Phone Unavailable Primary Care Provider Unavailabl e Encounter Details Date Type Department Care Team (Late st Contact Info) Description 02/24/2024 Interpretation Only [address] [id number] Bear Delgado PA [address] [place] [address] Social History Tobacco Use Types Packs/Day Years [...] Procedure Name Priority Date/Time Associated Diagnosis Comments XR KNEE AP LAT AXIAL PATELLA BILAT Routine 02/24/2024 2:01 PM EDT documented in this encounter Results * XR Knee 3 Views Bilat (02/24/2024 2:01 PM EDT) PT CLASS O DH RAD ADMITDTTM [id number] DH RAD PT RAD INFO [id number]^Johnst on^Bear^B RAD EXAM DESC [id number]^XR Knee 3 Views Bilateral^RIS [facility] WORKSTATION ID [id number] [facility] Anatomical Region Laterality Modality Knee Bilateral Radiographic Teresa ging 02/24/2024 1:42 PM EDT Impressions 02/24/2024 3:51 PM EDT Bilateral degenerative osteoarthropathy, not appreciably changed. Thank you for letting us participate in the care of this patient. ??If you are a health care provider and have any questions regarding this report, please contact the number below. ??For patients who have questions please contact the health healthcare facility administrator that requested your imaging first. ? Electronically signed by: Favian Landeros MD, [facility] ([phone]), at 02/24/2024 3:51 PM Narrative 02/24/2024 3:51 PM EDT EXAMINATION: XR Knee 3 Views Bilateral CLINICAL HISTORY: Osteoarthritis bilateral knees-assess for advancement TECHNIQUE: Supine and crosstable lateral views of both knees COMPARISON: March 13, 2022 FINDINGS: Bilateral degenerative arthropathy with joint space narrowing and subchondral sclerosis/endplate productive changes, most pronounced in the lateral joint space compartments, not appreciably changed. Normal patellofemoral alignment. Procedure Note Favian Landeros MD - 02/24/2024 EXAMINATION: XR Knee 3 Views Bilateral CLINICAL HISTORY: Osteoarthritis bilateral knees-assess for advancement TECHNIQUE: Supine and crosstable lateral views of both knees COMPARISON: March 13, 2022 FINDINGS: Bilateral degenerative arthropathy with joint space narrowing andsubchondral sclerosis/endplate productive changes, most pronounced in the lateraljoint space compartments, not appreciably changed. Normal patellofemoralalignment. IMPRESSION Bilateral degenerative osteoarthropathy, not appreciably changed. Thank you for letting us participate in the care of this patient. If youare a health care provider and have any questions regarding this report,please contact the number below. For patients who have questions please contactthe health healthcare facility administrator that requested your imaging first. Bear JUNG IMG DX ORDERABLES documented in this encounter Visit Diagnoses Not on filedocumented in this encounter
--- OUTSIDE RECORDS SUMMARY | 2024-08-15 15:34 | XMS_ITS | Encounter Summary ---
Author Organization [facility] Address [facility] [place] [address] Care Team Providers Care Supervisor Alteration Workroom Name Role Phone Unavailable Primary Care Provider Unavailabl e Encounter Details Date Type Department Care Team (Late st Contact Info) Description 2023 SNF Visit [facility] [address] [place] [address] Vic Jimenes MD [facility] [place] [address] Dental abscess Social History Tobacco Use Types Packs/Day Years Used Date Smoking Tobacco: Never Assessed Sex and Gender Information Value Date Recorded Sex Assigned at Not on file Gender Identity Not on file Sexual Orientation Not on file documented as of this encounter Progress Notes * Vic Jimenes MD - 2023 2:19 PM EDT [facility] PROBLEM FOCUS FOLLOW UP [facility] Snf Facility Today: 02/08/23 Subjective: Chief Complaint / Reason for Visit: tooth pain History of Present Illness: Wendy Olvera is a 88 y.o. female with a h/o dementia, COPD, falls, HLD, DM2, HTN admitted to [facility] after [facility] with R superior and infreior pubic Rami fractures.Admitted for PT/OT there and now here for short term rehab. Had been generally stable on her home dose ofseroquel with occ prn needs. Today nurses states she has been complaining of tooth pain. She tells me that she is some mild pain on the R lower mandible. No f/chills or HINOJOSA There is no problem list on file for this patient. Medications 02/04/23 2544 Medication Sig Taking? acetaminophen (Tylenol) 500 mg [...] tablet daily as needed. Not on File Review of Systems Objective: There were no vitals taken for this visit. Wt Readings from Last 3 Encounters: 02/04/23 82.6 kg (182 lb 3.2 oz) BP Readings from Last 3 Encounters: 02/04/23 150/76 Physical Exam Vitals reviewed. Constitutional: General: She is not in acute distress. Appearance: Normal appearance. She is not ill-appearing. HENT: Head: Normocephalic and atraumatic. Mouth/Throat: Mouth: Mucous membranes are moist. Dentition: Abnormal dentition. Dental caries present. Palate: No mass. Pharynx: No oropharyngeal exudate. Comments: Likely fractured both molars on lower left with caries and pain No swelling noted Eyes: General: No scleral icterus. Pulmonary: Effort: Pulmonary effort is normal. Neurological: General: No focal deficit present. Mental Status: She is alert. Mental status is at baseline. Lab Results Component Value Date WBC 6.8 02/07/2023 HGB 11.8 02/07/2023 HCT 36.8 02/07/2023 MCV 98.7 (H) 02/07/2023 PLATELET 235 02/07/2023 Lab Results Component Value Date NA 140 02/07/2023 K 3.8 02/07/2023 CL 104 02/07/2023 CO2 27 02/07/2023 BUN 14 02/07/2023 CREATININE 0.82 02/07/2023 GLUCOSE 133 02/07/2023 CALCIUM 9.0 02/07/2023 ESTGFR 70 02/07/2023 Lab Results Component Value Date TSH 3.25 02/07/2023 Lab Results Component Value Date [id number] >2,000 (H) 02/07/2023 No results found for: HA1C Assessment and Plan: Assessment / Plan: Diagnoses and all orders for this visit: Dental abscess Will start oral abx and have dentist see her Follow Up: 1 week 35 minutes of this 35 minute visit was spent counseling and/or coordinating with nursing staff, patient and/or family regarding evaluation of current orders and plan. No future appointments. documented in this encounter Plan of Treatment Not on file documented as of this encounter Visit Diagnoses Diagnosis Dental abscess Periapical abscess without sinus documented in this encounter
--- OUTSIDE RECORDS SUMMARY | 2024-08-15 15:34 | XMS_ITS ---
Author Organization [facility] Address [address] [place], [place] [id number] Care Team Providers Care Materials Development Engineer Name Role Phone DoranWendy peterson Primary Care Provider REASON FOR VISIT [address] Pill Jar Social History Sex Assigned At : Social History Observation Description Sex Assigned At Female Encounters Encounter Location Date Provider Diagnosis [facility] [place] [address] [place] [address] 07/17/2024 Wendy Doran Plan Of Treatment Next Appt Details Provider Name:Wendy Doran , 10/20/2024 12:00:00 PM, [address] [facility], [place], [address], Progress Notes * Wendy OLVERADOB:1935 (89 yo F)Acc No.[id number]:07/17/2024 Patient:?Wendy OLVERA :1935???Age:89 Y???Sex:Female Address:[place] [address] * true * Date:? Generated for Kamelshi sabi/Cait/eTransmitting on:?08/15/2024 03:33 PM EST
--- OUTSIDE RECORDS SUMMARY | 2024-08-15 15:34 | XMS_ITS | Encounter Summary ---
Author Organization Replaced By [facility] Address [facility] [place] [address] Care Team Providers Care Gasoline Finisher Name Role Phone Unavailable Primary Care Provider Unavailabl e Reason for Referral * [facility] Spindle Maker Care (Routine) - Pending Review Specialty Diagnoses / Procedures Referred By Jen t Referred To Contact Diagnoses Debility Visiting Nurse, [facility] [address] [address] [facility] [address] [place] [phone] Referral ID Status Reason Start Date Expiration Date Visits Requested Visits Authorized [id number] Pending Review Consult, Test & Treat 4 08/04/2025 999 999 Electronically signed by [facility] Visiting Nurse at 08/04/2024 2:58 PM EST Encounter Details Date Type Department Care Team (Late st Contact Info) Description 08/04/2024 Transcribe Orders eD Incoming Referrals [phone] Vis[facility], [facility] [address] [address] Debility (Primary Dx) Social History Tobacco Use Types Packs/Day Years Used Date Smoking Tobacco: Never Assessed IPV Inpatient Questions Answer Date Recorded Does Anyone Try to Keep You From Having Contact with Others or Doing Things Outside Your Home? no 03/10/2023 Feels Threatened by Someone no 07/3 Feels Unsafe at Home or Work/School no 03/10/2023 Physical Signs of Abuse Present no 03/10/2023 Sex and Gender Information Value Date Recorded Sex Assigned at Not on file Gender Identity Not on file Sexual Orientation Not on file documented as of this encounter Plan of Treatment Scheduled Referrals Name Type Priority Associated Diagnoses Orde r Schedule Amb Referral to [facility] Spindle Maker Care Outpatient Referral Routine Debility Ordered: 08/04/2024 documented as of this encounter Visit Diagnoses Diagnosis Debility- Primary Debility, unspecified documented in this encounter
--- OUTSIDE RECORDS SUMMARY | 2024-08-15 15:34 | XMS_ITS | Encounter Summary ---
Author Organization [facility] [place] [address] Care Team Providers Care Aircraft Engineer Name Role Phone Unavailable Primary Care Provider Unavailabl e Reason for Visit * Reason Comments Edema B/l lower extremitit es Encounter Details Date Type Department Care Team ([facility] st Contact Info) Description 03/10/2023 7:07 PM EDT - 03/10/2023 9:15 PM EDT Emergency Emergency Services at [address] [phone] Ally Alaniz MD [address] [place] [address] [place] [address] Peripheral edema; Cellulitis of left lower extremity Discharge Disposition: Home Social History Tobacco Use Types Packs/Day Years Used Date Smoking Tobacco: Never Smokeless Tobacco: Never Tobacco Cessation:Counseling Given: Not Answered IPV Inpatient Questions Answer Date Recorded Does [...] Index - - documented in this encounter Discharge Instructions * Discharge Instructions* Ally Alaniz MD - 03/10/2023 9:01 PM EDT You have cellulitis on your left lower leg. You received your first dose of antibiotics in the emergency department. It is important to take all of your antibiotics as prescribed. It is equally important to elevate the affected area as much as possible as this will allow your body to heal much faster and help with pain control. Please follow-up with your primary care office in the next few days for a re-evaluation. Return to the emergency department if you have fever, chills, nausea, vomiting, redness spreading from the area affected today, or any other concerns. * Attachments The following attachments cannot be sent through Care Everywhere. * Cellulitis (Niuean) * Edema: Leg and Ankle (Niuean) documented in this encounter Medications at Time of Discharge Medication Sig Dispensed Refills Start Date End Date OLANZapine (ZyPREXA) 2.5 mg tablet Take 2.5 mg by mouth nightly. 08/18/2021 pravastatin (Pravachol) 20 mg tablet Take 20 mg by mouth nightly. cephALEXin (Keflex) 500 mg capsule Take 1 capsule by mouth 4 times daily. 40 capsule 03/10/2023 QUEtiapine (SEROquel) 25 mg tablet Take 1 tablet by mouth 3 times daily. Take 25mg at 8 am, and 11 am, take 50mg at 3 pm and 25 mg hs, she can take 25mg at 1pm prn 60 tablet 02/25/2023 gabapentin (Neurontin) 300 mg capsule Take 2 capsules by mouth 3 times daily. 90 capsule 12 02/20/2023 acetaminophen (Tylenol) 500 mg tablet Take 2 [...] as needed for Nausea. 20 tablet 02/04/2023 documented as of this encounter ED Notes * Ally Alaniz MD - 03/10/2023 7:13 PM EDT Images from the original note were not included. ED Attending Note HPI: Wendy Olvera is a 88 y.o. female who presents to the Emergency Department with edema. She has a history of dementia, COPD, frequent falls, hyperlipidemia, diabetes, hypertension, recent right superior and inferior pubic rami fractures in January of this year, presents to the emergency department with bilateral lower extremity edema and rash. She has been home for a week and a half. This time. Shehas noticed gradually worsening bilateral peripheral edema. Her skin has been itchy and she has been scratching at it. She developed an open wound on the left enriquez recently. Today her friend and caregiver was over and noticed that there was new erythema surrounding this wound and brought her to theED. The patient tells me that overall she feels fine. She specifically denies any chest pain, dyspnea, cough, sore throat, rhinorrhea, fever. She sleeps lying flat in bed on 1 or 2 pillows. She has no episodes of dyspnea at nighttime. She does not weigh herself, but she thinks that her weight is likely stable. She does not eat any microwave meals or canned soup. She does not think that her diet has changed significantly from when she left [facility]. Notes from [facility] facility between February 04 and February 25 note 1+ edema at the bilateral ankles and lower legs. I have no previous record of any echocardiograms. She is not prescribed Lasix. History is obtained from the patient and her friend/caregiver at the bedside. ROS as per HPI Vitals: ED Triage Vitals BP: 159/72 [03/10/231909] Heart Rate: 81 [03/10/231908] Resp: 16 [03/10/231908] Temp: 36.3 ??C (97.3 ??F) [03/10/231908] Temp src: Temporal [03/10/231908] SpO2: 97 % [03/10/231908] O2 Device: RA [03/10/231908] O2 Flow Rate (L/min): n/a Physical Exam Vitals and nursing note reviewed. Constitutional: General: She is not in acute distress. Appearance: Normal appearance. She is well-developed. She is not diaphoretic. HENT: Head: Normocephalic and atraumatic. Right Ear: External ear normal. Left Ear: External ear normal. Nose: Nose normal. No congestion or rhinorrhea. Mouth/Throat: Mouth: Mucous membranes are moist. Pharynx: Oropharynx is clear. Eyes: Extraocular Movements: Extraocular movements intact. Conjunctiva/sclera: Conjunctivae normal. Pupils: Pupils are equal, round, and reactive to light. Neck: Vascular: No JVD. Cardiovascular: Rate and Rhythm: Normal rate and regular rhythm. Pulses: Radial pulses are 2+ on the right side and 2+ on the left side. Dorsalis pedis pulses are 2+ on the right side and 2+ on the left side. Heart sounds: Normal heart sounds. No murmur heard. No friction rub. No gallop. Pulmonary: Effort: Pulmonary effort is normal. No respiratory distress. Breath sounds: Normal breath sounds. No wheezing or rales. Chest: Chest wall: No tenderness. Abdominal: General: There is no distension. Palpations: Abdomen is soft. Tenderness: There is no abdominal tenderness. There is no guarding or rebound. Musculoskeletal: General: No tenderness. Normal range of motion. Cervical back: Normal range of motion and neck supple. Right lower le+ Pitting Edema (2+ pitting to the knee) present. Left lower le+ Pitting Edema (2+ pitting to the knee) present. Skin: General: Skin is warm and dry. Capillary Refill: Capillary refill takes less than 2 seconds. Findings: Rash present. Comments: There is trace erythema in the right enriquez. There is more pronounced erythema over the left enriquez. There is an erosion present to there. No fluctuance or induration. She photo at the end of the exam. Neurological: General: No focal deficit present. Mental Status: She is alert and oriented to person, place, and time. Cranial Nerves: No cranial nerve deficit. Coordination: Coordination normal. Psychiatric: Mood and Affect: Mood normal. ED Course: XR Chest PA & Lateral (Generic) Final Result Negative chest radiograph. Thank you for letting us participate in the care of this patient. If you are a health care provider and have any questions regarding this report, please contact the number below. For patients who have questions please contact the health daycare director that requested your imaging first. Electronically signed by: Kelsey Cody MD, [facility] ([phone]), at 03/10/2023 8:07 PM ED Course as of 03/10/232100 Sun Mar 10, 20231944 EKG 12 Lead 76 bpm. Normal sinus rhythm. Normal axis, normal waveform. No ST changes. 2008 WBC: 7.6 2008 Hemoglobin: 12.4 2008 Platelets: 230 2031 XR Chest PA & Lateral (Generic) No acute findings. 2034 Lactate: 0.9 2034 Glucose Lvl: 95 2034 BUN: 14 2034 Creatinine: 1.00 2034 Sodium: 143 2034 Potassium: 3.6 2034 Chloride: 106 2034 CO2: 26 2034 Anion Gap: 11 2034 Calcium: 9.3 2034 Total Protein: 6.5 2034 Albumin: 3.8 2034 AST: 15 2034 ALT: <5 2034 Alk Phos(!): 183 2034 Total Bilirubin: 0.3 2049 ProBNP(!): 515 2057 Labs are overall reassuring. I have updated the patient and her caregiver at the bedside. I reexamined her cellulitis and it has not changed. We had a shared decision-making conversation about hospitalization for IV antibiotics versus oral antibiotics. She would much prefer to be discharged home on oral antibiotics. 2058 I emphasized the importance of taking her oral antibiotics, elevating her legs, close follow-up with primary care, and returning to the ED immediately for any systemic symptoms or spreading erythema. She and her caregiver are comfortable with this plan. Assessment and Plan: 88 y.o. female with history of dementia, COPD, falls, hyperlipidemia, diabetes, hypertension, presents to the emergency department with worsening bilateral peripheral edema over the last 10 days as well as left lower extremity cellulitis due to skin erosion from scratching her enriquez. Regarding the ce llulitis, I will give her an initial dose of IV Ancef. Given her peripheral edema as well as evidence of chronic venous stasis, this cellulitis is at high risk of failing outpatient management. I will observe her in the ED to make sure it is not rapidly spreading. Regarding her worsening peripheral edema, the differential includes heart failure, liver failure, kidney failure. She has no dyspnea on exertion, PND, orthopnea, dyspnea at all, chest pain. I have ordered CBC, CMP, proBNP. EKG is normal. She has had no episodes of chest pain or dyspnea to suggest angina therefore this is not consistent with ACS and I did not order troponins. Did this case involve critical care? No The visit findings, diagnosis, and care plan were discussed with the patient. The diagnosis and care plans discussions were outlined in the discharge instructions. The patient expressed understanding of the details of the visit, the return precautions and that she should return to the ER at any time for worsening symptoms, new symptoms, or other concerns. she agrees with thefollow- up plan. Discharge instructions: You have cellulitis on your left lower leg. You received your first dose of antibiotics in the emergency department. It is important to take all of your antibiotics as prescribed. It is equally important to elevate the affected area as much as possible as this will allow your body to heal much faster and help with pain control. Please follow-up with your primary care office in the next few days for a re-evaluation. Return to the emergency department if you have fever, chills, nausea, vomiting, redness spreading from the area affected today, or any other concerns. Ally Alaniz MD 03/10/232100 documented in this encounter Miscellaneous Notes * ED Triage - Diane Coelho RN - 03/10/2023 7:20 PM EDT Pt presents to the ED with c/o swelling, redness, itching/pain of b/l lower extremities. Pt states that she has had these sx for approx a week. The wounds on her legs have gotten worse from scratching. Largest wound noted on left lower enriquez. Pt noted increased pain with ambulating, and increased fatigue. Pt CA, friend at bedside. Able to converse in full sentences. Redness, swelling, diffuse scratches noted on b/l lower extremities. Wound noted on left enriquez. Ambulating without assistance. HPI (Adult) Stated Reason for Visit: Reddnes, swelling, wounds b/l lower extremitites History Obtained From: patient Precipitating Event(s): unknown Onset of Symptoms: gradual, worsening Duration (Weeks): 1 documented in this encounter Plan of Treatment Not on file documented as of this encounter Procedures Procedure Name Priority Date/Time Associated Diagnosis Comments XR CHEST PA AND LATERAL STAT 03/10/2023 7:57 PM EDT HEMOGRAM STAT 03/10/2023 7:50 PM EDT DIFFERENTIAL, AUTOMATED STAT 03/10/2023 7:50 PM EDT CBC (WITH DIFF) STAT 03/10/2023 7:50 PM EDT PRO-BRAIN NATRIURETIC PEPTIDE STAT 03/10/2023 7:50 PM EDT LACTATE, PLASMA STAT 03/10/2023 7:50 PM EDT COMPREHENSIVE METABOLIC PANEL STAT 03/10/2023 7:50 PM EDT EKG 12-LEAD STAT 03/10/2023 7:31 PM EDT documented in this encounter Results * XR Chest PA & Lateral (Generic) (03/10/2023 7:57 PM EDT) Anatomical Region Laterality Modality Chest N/A Digital Radiogra phy Impressions 03/10/2023 8:07 PM EDT Negative chest radiograph. Thank you for letting us participate in the care of this patient. ??If you are a health care provider and have any questions regarding this report, please contact the number below. ??For patients who have questions please contact the health daycare director that requested your imaging first. ? Electronically signed by: Kelsey Cody MD, [facility] ([phone]), at 03/10/2023 8:07 PM Narrative 03/10/2023 8:07 PM EDT EXAMINATION: XR CHEST PA AND LATERAL (GENERIC) CLINICAL HISTORY: new bilateral peripheral edema TECHNIQUE: PA and lateral views of the chest COMPARISON: March 19, 2009 FINDINGS: Lungs are clear without mass nor consolidation. Bilateral lower lobe atelectasis. No pleural effusion or pneumothorax. Cardiomediastinal contours and pulmonary vasculature are normal. No free air below the diaphragm or focal extrathoracic soft tissue abnormality. No displaced fracture. Degenerative compression deformities through the mid thoracic spine. Procedure Note Kelsey Cody MD - 03/10/2023 EXAMINATION: XR CHEST PA AND LATERAL (GENERIC) CLINICAL HISTORY: new bilateral peripheral edema TECHNIQUE: PA and lateral views of the chest COMPARISON: March 19, 2009 FINDINGS: Lungs are clear without mass nor consolidation. Bilateral lower lobe atelectasis. No pleural effusion or pneumothorax. Cardiomediastinal contours and pulmonary vasculature are normal. No free air below the diaphragm or focal extrathoracic soft tissueabnormality. No displaced fracture. Degenerative compression deformities through themid thoracic spine. IMPRESSION Negative chest radiograph. Thank you for letting us participate in the care of this patient. If youare a health care provider and have any questions regarding this report,please contact the number below. For patients who have questions please contactthe health daycare director that requested your imaging first. Ally Alaniz MD IMG DX ORDERABLES * (ABNORMAL) Differential, Automated (03/10/2023 7:50 PM EDT) Neutrophil % 56.0 % [facility] Neutrophil Absolute 4.23 1.70 - 6.10 x10(3)/[facility] Lymph % 24.0 % [facility] Lymphocytes Abs 1.8 0.9 - 3.2 x10(3)/[facility] Monocyte % 9.0 % [facility] Monocyte Abs 0.7 0.3 - 0.9 x10(3)/[facility] Eos % 10.6 % [facility] Eosinophils Abs 0.8(H) 0.0 - 0.4 x10(3)/[facility] Basophil % 0.3 % [facility] Baso Absolute 0.0 0.0 - 0.1 x10(3)/[facility] Immature Gran % 0.10 % [facility] Comment: Immature granulocytes(IG's)percentage and absolute count will include metamyelocytes, myelocytes, and promyelocytes. Blood smears from CBCs yielding IG's will be scanned manually for concordance. If this scan disagrees with the automated IG or if promyelocytes are noted, a manual differential will be performed. Immature Gran Absolute 0.01 0.00 - 0.04 x10(3)/[facility] Blood 03/10/2023 7:50 PM EDT 03/10/2023 8:04 PM EDT Narrative Resulting Agency Comment Spec In Lab Ally Alaniz MD HEMATOLOGY ORDERABLE S [facility] [address] [place] [address] * (ABNORMAL) Hemogram (03/10/2023 7:50 PM EDT) White Blood Cell 7.6 4.0 - 9.5 x10(3)/mc L [facility] Red Blood Cell 3.92(L) 4.00 - 5.21 x10(6)/mc L [facility] Hemoglobin 12.4 11.7 - 15.5 g/dL [facility] Hematocrit 38.8 35.7 - 45.8 % [facility] Mean Cell Volume 99.0(H) 82.6 - 94.4 fL [facility] Mean Cell Hemoglobin 31.6 27.1 - 32.0 pg [facility] Mean Cell Hemoglobin Concentration 32.0 31.7 - 35.0 g/dL [facility] Platelet 230 145 - 357 x10(3)/mc L [facility] RDW Standard Deviation 50.0(H) 37.0 - 46.0 fL [facility] RDW coefficient of variation 13.6 11.5 - 14.1 % [facility] Mean Platelet Volume 8.9 7.6 - 12.9 fL [facility] Blood 03/10/2023 7:50 PM EDT 03/10/2023 8:04 PM EDT Narrative Resulting Agency Comment Spec In Lab Ally Alaniz MD HEMATOLOGY ORDERABLE S Performing Organization Address City/[facility]/ZIP Co de Phone Number [facility] [address] [place] [address] * Lactate, plasma (03/10/2023 7:50 PM EDT) Lactic Acid 0.9 0.5 - 2.2 mmol/L [facility] Blood 03/10/2023 7:50 PM EDT 03/10/2023 8:04 PM EDT Narrative Resulting Agency Comment Spec In Lab Ally Alaniz MD CHEMISTRY ORDERABLES Performing Organization Address [facility]/ZIP Co de Phone Number [facility] [address] [place] [address] * (ABNORMAL) pro-Brain Natriuretic Peptide (03/10/2023 7:50 PM EDT) NT-proBNP 515(H) <=449 pg/mL [facility] Blood 03/10/2023 7:50 PM EDT 03/10/2023 8:04 PM EDT Narrative Resulting Agency Comment Spec In Lab Ally Alaniz MD CHEMISTRY ORDERABLES [facility] [address] [place] [address] * (ABNORMAL) Comprehensive metabolic panel (non-fasting) (03/10/2023 7:50 PM EDT) Pathologist [facility] Glucose 95 65 - 199 mg/dL [facility] Comment:Diabetes: >=200 mg/d L plus symptoms Blood Urea Nitrogen 14 8 - 18 mg/dL [facility] Creatinine 1.00 0.70 - 1.20 mg/dL [facility] Sodium 143 135 - 145 mmol/L [facility] Potassium 3.6 3.5 - 5.0 mmol/L [facility] Comment: Please note: ??Patients with WBC >100,000 may have falsely elevated Potassium levels. ??For accurate Potassium quantification in these patients send serum separator tube (gold top) for subsequent determinations. ??Contact the Clinical Chemistry Laboratory if there are any questions. Chloride 106 98 - 107 mmol/L [facility] Carbon Dioxide 26 22 - 31 mmol/L [facility] Anion Gap 11 5 - 15 mmol/L [facility] Calcium 9.3 8.5 - 10.5 mg/dL [facility] Protein, Total 6.5 6.1 - 8.0 g/dL [facility] Albumin 3.8 3.2 - 5.2 g/dL [facility] Aspartate Aminotransferase 15 0 - 30 unit/L [facility] Alanine Aminotransferase <5 0 - 30 unit/L [facility] Alkaline Phosphatase 183(H) 35 - 105 unit/L [facility] Bilirubin, Total 0.3 0.2 - 1.3 mg/dL [facility] Est Glomerular Filtration Rate 55(L) >=60 mL/min/1. 73 m?? [facility] Comment: This patient's estimated GFR was calculated [...] and symptoms in addition to eGFR. Blood 03/10/2023 7:50 PM EDT 03/10/2023 8:04 PM EDT Narrative Resulting Agency Comment Spec In Lab Ally Alaniz MD CHEMISTRY ORDERABLES Performing Organization Address [facility] Co de Phone Number [facility] [address] [place] [address] * EKG 12 Lead (03/10/2023 7:31 PM EDT) Ventricular rate 76 BPM MUSE SYSTEM Atrial Rate 76 BPM MUSE SYSTEM P-R Interval 168 ms MUSE SYSTEM QRS Duration 90 ms MUSE SYSTEM Q-T Interval 398 ms MUSE SYSTEM QTC Calculated (Bezet) 447 ms MUSE SYSTEM Calculated P Craig 68 degrees MUSE SYSTEM Calculated R Craig 10 degrees MUSE SYSTEM Calculated T Craig 57 degrees MUSE SYSTEM INTERPRETATION Normal sinus rhythm Normal ECG No previous ECGs available Confirmed by MD Ja, Main ([id number]) on 03/11/2023 10:15:48 AM MUSE SYSTEM 03/10/2023 7:31 PM EDT 03/11/2023 10:15 AM EDT Ally Alaniz MD ECG ORDERABLES Performing Organization Address [facility] de Phone Number MUSE SYSTEM documented in this encounter Visit Diagnoses Diagnosis Peripheral edema Edema Cellulitis of left lower extremity Cellulitis and abscess of leg, except foot documented in this encounter Administered Medications Inactive Administered Medications - up to 3 most recent administrations Medication Order MAR Action Action Date Dose Rate Site ceFAZolin (Ancef) 2 g vial attach to sodium chloride 0.9% 100 mL Mini-Bag Plus 2 g, Intravenous, ONCE, 1 dose, On 03/10/23 at 1934, Administer over 30 Minutes, Indication for (Active or Suspected): Skin/Skin Structure New Bag 03/10/2023 7:59 PM EDT 2 g 200 mL/hr documented in this encounter Active and Recently Administered Medications Times are shown in EDT. Scheduled Medication Order 03/08/2023 03/09/2023 03/10/2023 ceFAZolin (Ancef) 2 g vial attach to sodium chloride 0.9% 100 mL Mini-Bag Plus (COMPLETED) 2 g, Intravenous, ONCE, 1 dose, On 03/10/23 at 1934, Administer over 30 Minutes, Indication for (Active or Suspected): Skin/Skin Structure 1958 (New Bag - Prov ider: Diane Bassett RN)2028 (Stopped - Provider: Diane Bassett RN) documented in this encounter
--- OUTSIDE RECORDS SUMMARY | 2024-08-15 15:34 | XMS_ITS | Encounter Summary ---
Author Organization [facility] [place] [address] Care Team Providers Care Retanned Leather Roller Name Role Phone Unavailable Primary Care Provider Unavailabl e Reason for Visit * Reason Onset Date Comments Other 04/05/2023 The hearing care professional nando young. Encounter Details Date Type Department Care Team (Late st Contact Info) Description 04/05/2023 Telephone Emergency [facility] [address] [place] [id number] Maryam Jacob RN Other (The hearing care professional called. ) Social History Tobacco Use Types Packs/Day Years [...] Telephone Encounter - Maryam Jacob RN - 04/05/2023 12:36 PM EDT This RN received a call from this patients hearing care professional. The hearing care professional was inquiring about the call back program in the ED. I explained that the call back program is designed to help ensure patients that are discharged from the ED are able to receive the medications and or follow up that they need. The caregiver stated that she was concerned that the patients infection was worsening. I told the caregiver I could not give her any patient related information but that I was happy to discuss this with the patient. The hearing care professional stated the patient was resting but she would have her call me back. The patient called me back but seemed confused as to why she was talking with me. I asked her if she needed any help with anything or if she wanted help getting a follow up appointment. The patient seemed unsure of what to do. She told me she wasn't sure she was ready for my help. At this point I tried to reassure the patient that is was absolutely fine and I was only here if she needed any help.I encouraged her to talk with her family if she had concerns but wasn't sure how on next steps. I also told her she could always call me back if she did need some assistance with follow up care. The patient was content with that plan. documented in this encounter Plan of Treatment Not on file documented as of this encounter Visit Diagnoses Not on filedocumented in this encounter
--- OUTSIDE RECORDS SUMMARY | 2024-08-15 15:34 | XMS_ITS | Encounter Summary ---
Author Organization Formerly [facility] Address [facility] [place] [address] Care Team Providers Care Canteen Operator Name Role Phone Unavailable Primary Care Provider Unavailabl e Encounter Details Date Type Department Care Team (Late st Contact Info) Description 02/20/2023 3:00 PM EDT SNF Visit [facility] [address] [place] [id number] Vic Jimenes MD [facility] [place] [address] Dementia with behavioral disturbance Social History Tobacco Use Types Packs/Day Years Used Date Smoking Tobacco: Never Assessed Sex and Gender Information Value Date Recorded Sex Assigned at Not on file Gender Identity Not on file Sexual Orientation Not on file documented as of this encounter Progress Notes * Vic Jimenes MD - 02/20/2023 3:00 PM EDT CUSTODIAL FACILITY PROBLEM FOCUS FOLLOW UP [facility] Today: 02/20/23 Subjective: Chief Complaint / Reason for Visit: family meeting to review meds History of Present Illness: Wendy Olvera is a 88 y.o. female with a h/o dementia, COPD, falls, HLD, DM2, HTN admitted to [facility] after afall with R superior and infreior pubic Rami fractures.Admitted for PT/OT there and now here for short term rehab. Had been generally stable on her home dose ofseroquel with occ prn needs. She has had some more behavioral issues, calling family at times, doing well in PT/OT. Our med list differs from what she was on at home. Will adjust to better correspondto that. Patient Active Problem List Diagnosis Code Depression F32.A Dementia with behavioral disturbance F03.918 Hypertension I10 Closed fracture of right inferior pubic ramus, with routine healing, subsequent encounter S32.591D Medications 02/18/23 1057 Medication Sig Taking? QUEtiapine (SEROquel) 25 mg tablet Take 1 tablet by mouth 4 times daily. Take 25mg at 8 am, and 11 am, take 50mg at 3 pm and 25 mg hs, she can take 25mg at 1pm prn gabapentin (Neurontin) 300 mg capsule Take 2 capsules by mouth 3 times daily. acetaminophen (Tylenol) 500 mg tablet Take 2 [...] tablet Take 1 tablet by mouth daily. mirtazapine (Remeron) 7.5 mg tablet Take 1 tablet by mouth nightly. ondansetron ODT (Zofran-ODT) 4 mg disintegrating tablet Take 1 tablet by mouth every 8 hours as needed for Nausea. No Known Allergies Review of Systems Objective: There were no vitals taken for this visit. Wt Readings from Last 3 Encounters: 02/18/23 83.7 kg (184 lb 8 oz) 02/15/23 81.9 kg (180 lb 9.6 oz) 02/04/23 82.6 kg (182 lb 3.2 oz) BP Readings from Last 3 Encounters: 02/18/23 130/70 02/15/23 138/72 02/04/23 150/76 Physical Exam Vitals reviewed. Constitutional: General: She is not in acute distress. Appearance: Normal appearance. HENT: Head: Normocephalic and atraumatic. Mouth/Throat: Pharynx: No oropharyngeal exudate. Eyes: General: No scleral icterus. Conjunctiva/sclera: Conjunctivae normal. Pulmonary: Effort: Pulmonary effort is normal. No respiratory distress. Breath sounds: No wheezing, rhonchi or rales. Musculoskeletal: Cervical back: Normal range of motion and neck supple. Skin: General: Skin is warm. Neurological: General: No focal deficit present. Mental Status: She is alert. Mental status is at baseline. Psychiatric: Mood and Affect: Mood normal. Lab Results Component Value Date WBC 6.8 [...] 3.25 02/07/2023 Lab Results Component Value Date [id number] >2,000 (H) 02/07/2023 No results found for: HA1C Assessment and Plan: Assessment / Plan: Diagnoses and all orders for this visit: Dementia with behavioral disturbance Other orders - QUEtiapine (SEROquel) 25 mg tablet; Take 1 tablet by mouth 4 times daily. Take 25mg at 8 am, and 11 am, take 50mg at 3 pm and 25 mg hs, she can take 25mg at 1pm prn - gabapentin (Neurontin) 300 mg capsule; Take 2 capsules by mouth 3 times daily. Will discuss med changes with nursing staff, will have adenike-psych see her to help evaluate her regimen. Follow Up: 2 weeks 45 minutes of this 45 minute visit was spent counseling and/or coordinating with nursing staff, patient and/or family regarding evaluation of current orders and plan. Future Appointments Date Time Provider Department Center 02/20/2023 3:00 PM Vic Jimenes MD [facility] None documented in this encounter Plan of Treatment Not on file documented as of this encounter Visit Diagnoses Diagnosis Dementia with behavioral disturbance Dementia, unspecified, with behavioral disturbance documented in this encounter
--- OUTSIDE RECORDS SUMMARY | 2024-08-15 15:34 | XMS_ITS | Encounter Summary ---
Author Organization [facility] [place] [address] Care Team Providers Care Brilliandeer Looper Name Role Phone Unavailable Primary Care Provider Unavailabl e Reason for Visit * Reason Onset Date Comments Other 04/05/2023 Encounter Details Date Type Department Care Team (Late st Contact Info) Description 04/05/2023 Telephone Emergency Services at [facility] [address] [place] [address] Maryam Jacob, RN Other Social History Tobacco Use Types Packs/Day Years [...] Encounter - Maryam Jacob RN - 04/05/2023 3:39 PM EDT The patients caregiver called and left a message with a concern that the patient had a bat exposureon 03/24 or 03/25. Today the caregiver realized that the patients door was likely open and the bat had an opportunity of going in her room. I called the patient back and told her since it had been almost two weeks, the department of health might be a great resource for advice. The caregiver stated that she had already called the rabies hotline and the department of health. The caregiver was told she is welcome to bring the patient in if she is concerned to be evaluated by the ED provider. She verbalized understanding. documented in this encounter Plan of Treatment Not on file documented as of this encounter Visit Diagnoses Not on filedocumented in this encounter
--- OUTSIDE RECORDS SUMMARY | 2024-08-15 15:34 | XMS_ITS | Patient Health Record ---
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 Name Role Phone Wendy Doran Primary Care Provider Aline Gonzales Unavailable [phone] Allergies No Known Allergies Results Component Value Reference Range Notes URINE DIP IH Reviewed date:07/20/2024 01:46:57 PM Interpretation: Performing Lab: Notes/Report: Urine-Color yellow Appearance cloudy Specific [place] 1.015 pH 6.5 Glucose negative Protein 15 Occult Blood 5-10 Bilirubin negative Urobilinogen,Semi-Qn 0.2 Nitrite, Urine neg Ketones neg Leukocyte esterase neg URINALYSIS COMPLETE WITH REF JAYSON TO CULTURE Reviewed date:07/27/2024 10:03:10 AM Interpretation: Performing Lab:NL1, [facility] [address] Bri Fortune M.D. Notes/Report: Received Date: NON-FASTING [...] REFLEXIVE URINE CULTURE NO C ULTURE INDICATED VITAMIN B12 AND FOLATE SERUM PANEL Reviewed date:01/30/2024 12:38:41 PM Interpretation: Performing Lab:MORIAH1, [facility] [address] Bri Fortune M.D. Notes/Report: Received Date: NON-FASTING NON-FASTING VITAMIN B12 >2000 200-1100 pg/mL FOLATE, SERUM 6.1 Reference Range Low: <3.4 Borderline: 3.4-5.4 Normal: >5.4 NO COLLECTION DATE RECEIVED. WE HAVE USED THE DATE THE SPECIMEN WAS RECEIVED BY THIS LABORATORY THE COLLECTION DATE. IF THIS IS INCORRECT, PLEASE CONTACT CLIENT SERVICES. PHONE NUMBER: URINE CULTURE ROUTINE Reviewed date:01/30/2024 12:38:41 PM Interpretation: Performing Lab:MORIAH1, [facility] [address] Bri Fortune M.D. Notes/Report: Received Date: NON-FASTING CULTURE, URINE, ROUTINE SEE NOTE CULTURE, URINE, ROUTINE Micro Number: [id number] Test Status: Final Specimen Source: Urine Specimen Quality: Adequate Result: Greater than 100,000 CFU/mL of Klebsiella pneumoniae (ESBL) K.pneumo (ESBL) INT BUSTER AMOX/CLAVULANATE S 8 AMPICILLIN R >=32 1 AMP/SULBACTAM R >=32 CEFAZOLIN R >=64 CEFEPIME R >=64 CEFTAZIDIME R >=64 CEFTRIAXONE R >=64 CIPROFLOXACIN I 0.5 GENTAMICIN S <=1 IMIPENEM S <=0.25 LEVOFLOXACIN I 1 NITROFURANTOIN S 32 PIP/TAZOBACTAM S 8 TOBRAMYCIN S <=1 TRIMETHOPRIM/SULFA S <=20 ESBL RESULT: * 2 S=Susceptible I=Intermediate R=Resistant * = Not Tested NR = Not Reported NN = See Therapy Comments THERAPY COMMENTS Note 1: Extended spectrum beta-lactamase (ESBL) producing organisms demonstrate decreased activity with penicillins, cephalosporins and aztreonam. Note 2: The organism has been confirmed as an ESBL gas producer. CMP Reviewed date:01/30/2024 12:38:41 PM Interpretation: Performing Lab:[facility] [address] Bri Fortune M.D. Notes/Report: Received Date: [id number] NON-FASTING NON-FASTING GLUCOSE 77 65-99 mg/dL Fasting reference interval UREA NITROGEN (BUN) 12 7-25 mg/dL CREATININE 0.97 0.60-0.95 mg/dL EGFR 57 > OR = 60 mL/min/1.73m2 BUN/CREATININE RATIO 12 6-22 (calc) SODIUM 141 135-146 mmol/L POTASSIUM 3.8 3.5-5.3 mmol/L CHLORIDE 104 98-110 mmol/L CARBON DIOXIDE 30 20-32 mmol/L CALCIUM 9.6 8.6-10.4 mg/dL PROTEIN, TOTAL 6.3 6.1-8.1 g/dL ALBUMIN 4.0 3.6-5.1 g/dL GLOBULIN 2.3 1.9-3.7 g/dL (calc) ALBUMIN/GLOBULIN RATIO 1.7 1.0-2.5 (calc) BILIRUBIN, TOTAL 0.5 0.2-1.2 mg/dL ALKALINE PHOSPHATASE 126 37-153 U/L AST 12 10-35 U/L ALT 7 6-29 U/L URINE DIP IH Reviewed date:01/22/2024 01:52:44 PM Interpretation: Performing Lab: Notes/Report: Urine-Color yellow Appearance cloudy Specific [place] 1.010 pH 6 Glucose normal Protein trace Occult Blood trace Bilirubin negative Urobilinogen,Semi-Qn normal Nitrite, Urine positive Ketones negative Leukocyte esterase ++ URINE CULTURE ROUTINE Reviewed date:05/07/2024 12:44:20 PM Interpretation: Performing Lab:[facility] [address] Bri Fortune M.D. Notes/Report: Received Date: [id number] NON-FASTING CULTURE, URINE, ROUTINE SEE NOTE CULTURE, URINE, ROUTINE Micro Number: [id number] Test Status: Final Specimen Source: Clean catch Specimen Quality: Adequate Result: Greater than 100,000 CFU/mL of Klebsiella pneumoniae (ESBL) K.pneumo (ESBL) INT BUSTER AMOX/CLAVULANATE S 8 AMPICILLIN R >=32 1 AMP/SULBACTAM R >=32 CEFAZOLIN R >=64 CEFEPIME R 32 CEFTAZIDIME R >=64 CEFTRIAXONE R >=64 CIPROFLOXACIN I 0.5 GENTAMICIN S <=1 IMIPENEM S 0.5 LEVOFLOXACIN I 1 NITROFURANTOIN S <=16 PIP/TAZOBACTAM S 8 TOBRAMYCIN S <=1 TRIMETHOPRIM/SULFA S <=20 ESBL RESULT: * 2 S = Susceptible I = Intermediate R = Resistant NS = Not susceptible SDD = Susceptible Dose Dependent * = Not Tested NR = Not Reported NN = See Therapy Comments THERAPY COMMENTS Note 1: Extended spectrum beta-lactamase (ESBL) producing organisms demonstrate decreased activity with penicillins, cephalosporins and aztreonam. Note 2: The organism has been confirmed as an ESBL gas producer. URINE DIP IH Reviewed date:05/04/2024 01:54:44 PM Interpretation:abnormal Performing Lab: Notes/Report: abnormal Urine-Color yellow Appearance cloudy Specific [place] 1.015 pH 5 Glucose normal Protein positive Occult Blood positive Bilirubin negative Urobilinogen,Semi-Qn negative Nitrite, Urine positive Ketones negative Leukocyte esterase positive URINE CULTURE ROUTINE Reviewed date:06/11/2024 09:41:53 AM Interpretation: Performing Lab:NL1, [facility] [address] Bri Fortune M.D. Notes/Report: Received Date: [id number] NON-FASTING CULTURE, URINE, ROUTINE SEE NOTE CULTURE, URINE, ROUTINE Micro Number: [id number] Test Status: Final Specimen Source: Clean catch Specimen Quality: Adequate Result: Greater than 100,000 CFU/mL of Escherichia coli E.coli INT BUSTER AMOX/CLAVULANATE S 8 AMPICILLIN R >=32 AMP/SULBACTAM S 8 CEFAZOLIN NR <=4 2 CEFEPIME S <=1 CEFTAZIDIME S <=1 CEFTRIAXONE S <=1 CIPROFLOXACIN S <=0.25 GENTAMICIN S <=1 IMIPENEM S <=0.25 LEVOFLOXACIN S <=0.12 NITROFURANTOIN S 32 PIP/TAZOBACTAM S <=4 TOBRAMYCIN S <=1 TRIMETHOPRIM/SULFA R >=320 S = Susceptible I = Intermediate R = Resistant NS = Not susceptible SDD = Susceptible Dose Dependent * = Not Tested NR = Not Reported NN = See Therapy Comments THERAPY COMMENTS Note 1: For infections other than uncomplicated UTI caused by E. coli, K. pneumoniae or P. mirabilis: Cefazolin is resistant if BUSTER > or = 8 mcg/mL. (Distinguishing susceptible versus intermediate for isolates with BUSTER < or = 4 mcg/mL requires additional testing.) Note 2: For uncomplicated UTI caused by E. coli, K. pneumoniae or P. mirabilis: Cefazolin is susceptible if BUSTER <32 mcg/mL and predicts susceptible to the oral agents cefaclor, cefdinir, cefpodoxime, cefprozil, cefuroxime, cephalexin and loracarbef. URINE DIP IH Reviewed date:06/05/2024 05:44:53 PM Interpretation: Performing Lab: Notes/Report: Urine-Color yellow Appearance cloudy Specific [place] 1.005 pH 7.5 Glucose negative Protein 30+ Occult Blood large Bilirubin negative Urobilinogen,Semi-Qn normal Nitrite, Urine positive Ketones negative Leukocyte esterase large URINE CULTURE ROUTINE Reviewed date:06/29/2024 03:32:11 PM Interpretation: Performing Lab:NL1, [facility] [address] Bri Fortune M.D. Notes/Report: Received Date: NON-FASTING CULTURE, URINE, ROUTINE SEE NOTE CULTURE, URINE, ROUTINE Micro Number: [id number] Test Status: Final Specimen Source: Clean catch Specimen Quality: Adequate Result: Greater than 100,000 CFU/mL of Escherichia coli E.coli INT BUSTER AMOX/CLAVULANATE I 16 AMPICILLIN R >=32 AMP/SULBACTAM R >=32 CEFAZOLIN R 16 1 CEFEPIME S <=1 CEFTAZIDIME S <=1 CEFTRIAXONE S <=1 CIPROFLOXACIN S <=0.25 GENTAMICIN S <=1 IMIPENEM S <=0.25 LEVOFLOXACIN S <=0.12 NITROFURANTOIN S <=16 PIP/TAZOBACTAM I 64 TOBRAMYCIN S <=1 TRIMETHOPRIM/SULFA R >=320 S = Susceptible I = Intermediate R = Resistant NS = Not susceptible SDD = Susceptible Dose Dependent * = Not Tested NR = Not Reported NN = See Therapy Comments THERAPY COMMENTS Note 1: For uncomplicated UTI caused by E. coli, K. pneumoniae or P. mirabilis: Cefazolin is susceptible if BUSTER <32 mcg/mL and predicts susceptible to the oral agents cefaclor, cefdinir, cefpodoxime, cefprozil, cefuroxime, cephalexin and loracarbef. NO COLLECTION DATE RECEIVED. WE HAVE USED THE DATE THE SPECIMEN WAS RECEIVED BY THIS LABORATORY THE COLLECTION DATE. IF THIS IS INCORRECT, PLEASE CONTACT CLIENT SERVICES. PHONE NUMBER: URINE DIP IH Reviewed date:06/29/2024 03:32:11 PM Interpretation: Performing Lab: Notes/Report: Urine-Color yellow Appearance cloudy Specific [place] 1.010 pH 7.0 Glucose negative Protein 30+ Occult Blood large Bilirubin negative Urobilinogen,Semi-Qn normal Nitrite, Urine positive Ketones negative Leukocyte esterase large TSH THYROID STIMULATING HORM ONE Reviewed date:05/15/2024 12:02:30 PM Interpretation: Performing Lab:[facility] [address] Bri Fortune M.D. Notes/Report: Received Date: NON-FASTING NON-FASTING NON-FASTING NON-FASTING TSH 2.43 0.40-4.50 mIU/L IRON AND TOTAL IRON BINDING CAPACITY SAT Reviewed date:05/15/2024 12:02:30 PM Interpretation: Performing Lab:[facility] [address] Bri Fortune M.D. Notes/Report: Received Date: NON-FASTING NON-FASTING NON-FASTING NON-FASTING IRON, TOTAL 32 45-160 mcg/dL IRON BINDING CAPACITY 203 250-450 mcg/dL (samia c) % SATURATION 16 16-45 % (calc) CBC WITH DIFF Reviewed date:05/15/2024 12:02:30 PM Interpretation: Performing Lab:MORIAH1 [facility] [address] Bri Fortune M.D. Notes/Report: Received Date: NON-FASTING NON-FASTING NON-FASTING NON-FASTING WHITE BLOOD CELL COUNT 8.5 3.8-10.8 Thousand/ uL RED BLOOD CELL COUNT 3.61 3.80-5.10 Million/uL HEMOGLOBIN 11.4 11.7-15.5 g/dL HEMATOCRIT 34.9 35.0-45.0 % MCV 96.7 80.0-100.0 fL MCH 31.6 27.0-33.0 pg MCHC 32.7 32.0-36.0 g/dL For adults, a slight decrease in the calculated MCHC value (in the range of 30 to 32 g/dL) is most likely not clinically significant; however, it should be interpreted with caution in correlation with other red cell parameters and the patient's clinical condition. RDW 13.3 11.0-15.0 % PLATELET COUNT 244 140-400 Thousand/uL MPV 9.2 7.5-12.5 fL ABSOLUTE NEUTROPHILS 5347 0601-2857 cells/uL ABSOLUTE LYMPHOCYTES 8937 053-2865 cells/uL ABSOLUTE MONOCYTES 884 200-950 cells/uL ABSOLUTE EOSINOPHILS 442 15-500 cells/uL ABSOLUTE BASOPHILS 43 0-200 cells/uL NEUTROPHILS 62.9 LYMPHOCYTES 21.0 MONOCYTES 10.4 EOSINOPHILS 5.2 BASOPHILS 0.5 BMP Reviewed date:05/15/2024 12:02:30 PM Interpretation: Performing Lab:NL1, [facility] [address] Bri Fortune M.D. Notes/Report: Received Date: NON-FASTING NON-FASTING NON-FASTING NON-FASTING GLUCOSE 95 65-99 mg/dL Fasting reference interval UREA NITROGEN (BUN) 15 7-25 mg/dL CREATININE 1.17 0.60-0.95 mg/dL EGFR 45 > OR = 60 mL/min/1.73m2 BUN/CREATININE RATIO 13 6-22 (calc) SODIUM 136 135-146 mmol/L POTASSIUM 3.9 3.5-5.3 mmol/L CHLORIDE 100 98-110 mmol/L CARBON DIOXIDE 29 20-32 mmol/L CALCIUM 8.7 8.6-10.4 mg/dL Reason For Referral Reason FAXED TO [facility] 02/02 LP. Please evaluate and treat for in-home PT services. Needs work on gait strengthening Please contact our office within [address] [facility] of scheduled appointment Diagnosis 1 Primary osteoarthrit is of both knees (M17.0) Referral Organization [facility] Referring Provider First Name Wendy Referring Provider Last Name Espinoza Referring Provider Speciality Internal M edicine Referred Provider [facility] Referred Provider Specialty Physical The rapist General Notes Jada Camargo 01/2024 10:33:07 AM >FAXED TO [facility] Clinical Notes Miranda Coyle RN 10:45:11 AM >Pts daughter notified Referral Priority Routine Medications Medication SIG (Take, Route, Frequency, Duration) Notes Start Date End Date Status B-12 TR 1000 MCG TAKE 1 TABLET BY MOUTH ONCE A DAY for 90 Active QUEtiapine Fumarate 25 MG TAKE ONE TABLET BY MOUTH TWICE DAILY AT 11 AND 1P addition to scheduled dosing Active Furosemide 40 MG 1 tablet Orally Once a day for 30 days Active Folic Acid 1 MG 1 tablet Orally Once a day for 100 days 01/30/2024 Active Gabapentin 600 MG Take 1 tablet by mouth at 8am, 4pm and 8pm for 90 Active lamoTRIgine 25 MG 2 tablets in the morning and 1 tablet at afternoon Orally twice a day for 90 days notice dose increase Active Macrobid 100 MG 1 capsule with food Orally every 12 hrs for 5 day(s) 06/29/2024 Active Macrobid 100 MG 1 capsule with food Orally every 12 hrs for 7 days 06/24/2024 Active Albuterol Sulfate 108 (90 Base) MCG/ACT 2 puffs Inhalation every 6 hours prn for wheezing 09/15/2021 Active Voltaren 1 % 4 Grams apply to each knee Externally Four times a day as needed for arthritic pain 01/16/2022 Active QUEtiapine Fumarate 50 MG 1 tablet in the morning 2 tablets at 3p Orally 11/17/2021 Active Vitamin D3 50 MCG (2000 UT) 1 capsule Orally Once a day Active Pravastatin Sodium 20 MG 1 tablet Orally at bedtime for 90 days 09/15/2021 Active Klor-Con 10 10 MEQ 1 tablet with food Orally daily 03/04/2023 Active Mirtazapine 7.5 MG TAKE ONE TABLET BY MOUTH AT BEDTIME Active Ferrous Sulfate 325 (65 Fe) MG 1 tablet Orally Once daily for 90 days 05/15/2024 Active Immunizations Vaccine Route Administration Date Status Comme nts Zostavax [facility] 10231 Unknown 06/06/2012 Administered TDAP Unknown 03/17/2020 Administered Td Unknown 09/16/2000 Administered Td Unknown 10/09/2011 Administered Prevnar PCV 13 [facility] [id number] Unknown 01/25/2015 Administer ed Pneumovax 23 Adult 65+ Purchased 00246 Unknown 09/29/2010 Administered Pneumovax 23 Adult 65+ Purchased 74114 Unknown 07/04/2020 Administered Influenza Adult FluBlok high dose PURCHASED Unknown 07/04/2020 Administered Influenza Adult FluBlok high dose PURCHASED IM Intramuscular 05/15/2022 Administered Influenza Adult FluBlok high dose PURCHASED IM Intramuscular 05/13/2024 Administered Influenza Adult 65 and Older Fluzone High Dose Purchased IM Intramuscular 06/19/2023 Administered COVID-19 Pfizer Unknown 09/22/2020 Administered COVID-19 Pfizer Unknown 10/13/2020 Administered Social History Tobacco Use: Social History Observation Description Date Details (start date - stop date) Former Smoker NA - NA Sex Assigned At : Social History Observation Description Sex Assigned At Female SMOKING STATUS: Question Answer Notes Are you a: Former smoker Are you a: Former smoker PRAPARE Question Answer Notes Date Completed/Updated: 05/13/2024 What is your current housing situation? I have h ousing Are you worried about losing your housing? No What is the highest level of school that you have finished? More than high school What is your current work situation? Oth erwise unemployed but not seeking work (ex. student, retired, disabled, unpaid primary manager wound care) In the past year, have you o r any family members you live with been unable to get any of the following when it was really needed? Check all that apply I do not have problems meeting my needs Has lack of transportation k ept you from medical appointments, meetings, work or from getting things needed for daily living? No How often do you see or talk to people that you care about and feel close to? (For example: talking to friends on the phone, visiting friends or family, going to alevism or club meetings) More than 5 times a week How stressed are you? Stress is when someone feels tense, nervous, anxious, or can't sleep at night because their mind is troubled Quite a bit In the past year have you sp ent more than 2 nights in a row in a penitentiary, group home, senior care center, or juvenile correctional facility? No Are you a refugee? No What country are you from? [place] Do you feel physically and e motionally safe where you currently live? Yes In the past year, have you b een afraid of your partner or ex-partner? No PRAPARE Score: 3 Section Notes: Trained in vocal performance at [employer] and performed widely. Trained in vocal performance at [employer] and performed widely. Trained in vocal performance at [employer] and performed widely. Trained in vocal performance at [employer] and performed widely. Problems Problem Type SNOMED Code ICD Code Onset Dates Problem Status W/U Status Risk Notes Problem 359223042 Primary osteoarthritis of both knees (M17.0) Active confirmed Problem 535362952 Vitamin B12 deficiency (E53.8) Active confirmed Problem 81482957586251 History of traumatic brain injury (Z87.820) Active confirmed Problem 37321434 Hypercholesterol emia (E78.00) Active confirmed will refill pravastatin. Problem 684732958 Health care maintenance (Z00.00) Active confirmed Administered flu shot. Encouraged to get COVID vaccine. Problem 90419307 Primary hypertension (I10) Active confirmed Values are at goal. Monitor BP. 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 Increase lamotrigine to 2 tablets in the morning and 1 tablet in the evening. Problem 005082037921902890 History of COVID-19 (Z86.16) 2021 Active confirmed Vital Signs Heart Rate 64 BPM 06/23/2024 2nd blood press ure 112/74 (mmHg) done by me Temperature 97.3 degrees Fahrenheit 06/23/2024 2nd blood pressure 112/74 (mmHg) done by me Blood pressure diastolic 78 mmHg 06/23/2024 2nd blood pressure 112/74 (mmHg) done by me Oximetry 97 % 06/23/2024 2nd blood press ure 112/74 (mmHg) done by me Height 67 in 06/23/2024 2nd blood press ure 112/74 (mmHg) done by me Blood pressure systolic 122 mmHg 06/23/2024 2nd blood pressure 112/74 (mmHg) done by me Weight 161.4 lbs 06/23/2024 2nd blood press ure 112/74 (mmHg) done by me BMI 25.28 kg/m2 06/23/2024 2nd blood press ure 112/74 (mmHg) done by me Encounters Encounter Location Date Provider Diagnosis [address] [place] [address] 01/22/2024 Wendy Doran Primary osteoarthrit is of right knee M17.11 ; 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 F02.80 ; Primary hypertension I10 and Urinary incontinence, unspecified type R32 [address] [place] [address] 05/04/2024 Aline Gonzales Confusion and disorientation R41.0 ; Acute cystitis with hematuria N30.01 and Urine abnormality R82.[address] [place] [address] 05/13/2024 Wendy Doran Alopecia L65.9 ; Con fusion and disorientation R41.0 ; Primary hypertension I10 ; Health care maintenance Z00.00 and Encounter for immunization Z23 [address] [place] [address] 06/05/2024 Wendy Doran Dysuria R30.[address] [place] [address] 06/23/2024 Wendy Doran Vitamin B12 deficien cy E53.8 ; Malodorous urine R82.90 ; Primary hypertension I10 and 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 F02.[address] [id number] 06/26/2024 Wendy Doran Urinary tract infect ion without hematuria, site unspecified N39.[address] [place] [address] 07/20/2024 Wendy Doran UTI (urinary tract infection) N39.[address] [place] [address] 12/18/2023 Wendy Doran [address] [place] [address] 01/20/2024 Wendy Doran [address] [place] [address] 01/24/2024 Wendy Doran [address] [place] [address] 01/30/2024 [place] [address] [address] [facility] [id number] 02/21/2024 Wendy Doran ER Visit ER [address] [place] [address] 03/23/2024 Wendy Doran [address] [place] [address] 04/08/2024 Wendy Doran [address] [place] [address] 04/23/2024 Wendy Doran [address] [place] [address] 05/04/2024 Wendy Doran [address] [place] [address] 05/04/2024 Wendy Doran Hypercholesterolemia E78.00 [facility] [place] [address] [address] [facility], [place] [id number] 05/06/2024 Wendy Doran [address] [place] [address] 05/07/2024 Wendy Doran Acute cystitis with hematuria N30.[address], [place] [id number] 05/11/2024 Wendy Doran [address] [place] [address] 05/13/2024 Wendy Doran [address] [place] [address] 05/14/2024 Wendy Doran PRAPARE POSITIVE PRA P [address] [place] [address] 05/15/2024 Wendy Doran [address] [id number] 05/18/2024 Wendy Doran [address] [place] [address] 05/25/2024 Wendy Doran [address] [place] [address] 05/27/2024 Wendy Doran [address], [place] [id number] 06/04/2024 Wendy Doran [address] [place] [address] 06/10/2024 Wendy Doran [address] [place] [address] 06/24/2024 Wendy Doran UTI (urinary tract infection) N39.[address] [place] [address] 06/29/2024 Wendy Doran [address], [place] [id number] 06/30/2024 Wendy Doran [address] [place] [address] 07/15/2024 Wendy Doran [employer] [address] [place] [address] 07/16/2024 Wendy Doran [address] [place] [address] 07/16/2024 Wendy Doran [address] [place] [address] 07/17/2024 Wendy Doran Assessments Encounter Date Diagnosis (ICD Code) Assessment Notes Treatment Notes Treatment Clinical Notes Section Notes 01/22/2024 Primary osteoarthritis of right knee (ICD-10 - M17.11) Improved following injection, can repeat prn 01/22/2024 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 Increase lamotrigine to 2 tablets in the morning and 1 tablet in the evening. Right ac venipuncture done with 23 g needle. Successful first attempt. Pt tolerated it well. Lab sent to brian. Ashley Mckay LPN 02/21/2024 ER Visit (ICD9-CM - ER) 05/04/2024 Acute cystitis with hematuria (ICD-10 - N30.01) Barbara is an 89 year old female here for concerns about a potential UTI, based on recent increase in confusion and volatile mood, in connection with foul smelling urine. Barbara was able to produce a urine specimen, which was positive for blood, nitrates and leukocyte esterase, all consistent with likely UTI. Differential diagnosis for increase in confusion could be UTI, progression of dementia, infection of another etiology. She did have a recent fall and was seen at [facility], but the CT was negative for bleed. Marlon is home with Barbara, and is careful in monitoring her due to a concern for wandering which has happened a few times in the last six months. He has had a challenging time finding help caring for her in his home. Plan: Cefalexin 500 mg q8 hours. F/u urine culture for sensitivities. F/u with PCP next month for support and resources for progression of dementia. Initial interview/exam /plan and documentation completed by Malachi Apple NP student. Edits and updates as necessary completed by KAYE Virk. 05/04/2024 Confusion and disorientation (ICD-10 - R41.0) Barbara is an 89 year old female here for concerns about a potential UTI, based on recent increase in confusion and volatile mood, in connection with foul smelling urine. Barbara was able to produce a urine specimen, which was positive for blood, nitrates and leukocyte esterase, all consistent with likely UTI. Differential diagnosis for increase in confusion could be UTI, progression of dementia, infection of another etiology. She did have a recent fall and was seen at [facility], but the CT was negative for bleed. Marlon is home with Barbara, and is careful in monitoring her due to a concern for wandering which has happened a few times in the last six months. He has had a challenging time finding help caring for her in his home. Plan: Cefalexin 500 mg q8 hours. F/u urine culture for sensitivities. F/u with PCP next month for support and resources for progression of dementia. Initial interview/exam /plan and documentation completed by Malachi Apple NP student. Edits and updates as necessary completed by KAYE Virk. 05/04/2024 Hypercholesterolemi a (ICD-10 - E78.00) 05/07/2024 Acute cystitis with hematuria (ICD-10 - N30.01) 05/13/2024 Alopecia (ICD-10 - L65.9) reviewed possible reversible causes of alopecia --> check labs for anemia, iron deficiency, thyroid. May be due to excessive washing and/or combing. Right ac venipuncture done with 23 g needle. Successful first attempt. Pt tolerated it well. Lab sent. Ashley Mckay LPN Time with patient in consultation: 20 minutes Time spent reviewing previous medical records or consulting with other providers: 3 minutes Time in medication management: 5 minutes Time documentin minutes Total time spent: 33 minutes 05/13/2024 Confusion and disorientation (ICD-10 - R41.0) Improved following treatment of UTI; will extend abx course for additional 5 days. Time with patient in consultation: 20 minutes Time spent reviewing previous medical records or consulting with other providers: 3 minutes Time in medication management: 5 minutes Time documentin minutes Total time spent: 33 minutes 05/14/2024 PRAPARE POSITIVE (ICD9-CM - PRAP) 06/05/2024 Dysuria (ICD-10 - R30.0) 06/23/2024 Vitamin B12 deficiency (ICD-10 - E53.8) #Malodorous urine: Most likely due to concentrated urine. Advised to drink plenty of fluids, as no other sx would not look for infection. #Alopecia: Sx improved, monitor for now. ON iron, recheck labs in f/u. #Confusion and disorientation : Mild increase, usually redirectable, will try increase lamotrigine to 2 tablets in the morning 1 tablet at afternoon. Continue Seroquel at current dose. #HTN: Values are at goal. Monitor BP. Time with patient in consultation: 30 minutes Time spent reviewing previous medical records or consulting with other providers: XX minutes Time in medication management: 8 minutes Time documentin minutes Total time spent: 44 minutes 06/24/2024 UTI (urinary tract infection) (ICD-10 - N39.0) 06/26/2024 Urinary tract infection without hematuria, site unspecified (ICD-10 - N39.0) 07/15/2024 Insurance (ICD9-CM - INS) 07/20/2024 UTI (urinary tract infection) (ICD-10 - N39.0) 06/23/2024 Malodorous urine (ICD-10 - R82.90) #Malodorous urine: Most likely due to concentrated urine. Advised to drink plenty of fluids, as no other sx would not look for infection. #Alopecia: Sx improved, monitor for now. ON iron, recheck labs in f/u. #Confusion and disorientation : Mild increase, usually redirectable, will try increase lamotrigine to 2 tablets in the morning 1 tablet at afternoon. Continue Seroquel at current dose. #HTN: Values are at goal. Monitor BP. Time with patient in consultation: 30 minutes Time spent reviewing previous medical records or consulting with other providers: XX minutes Time in medication management: 8 minutes Time documentin minutes Total time spent: 44 minutes 01/22/2024 Primary hypertension (ICD-10 - I10) Values are at goal. Monitor BP. 05/13/2024 Primary hypertension (ICD-10 - I10) Values are at goal. Monitor BP. Time with patient in consultation: 20 minutes Time spent reviewing previous medical records or consulting with other providers: 3 minutes Time in medication management: 5 minutes Time documentin minutes Total time spent: 33 minutes 05/04/2024 Urine abnormality (ICD-10 - R82.90) Barbara is an 89 year old female here for concerns about a potential UTI, based on recent increase in confusion and volatile mood, in connection with foul smelling urine. Barbara was able to produce a urine specimen, which was positive for blood, nitrates and leukocyte esterase, all consistent with likely UTI. Differential diagnosis for increase in confusion could be UTI, progression of dementia, infection of another etiology. She did have a recent fall and was seen at [facility], but the CT was negative for bleed. Marlon is home with Barbara, and is careful in monitoring her due to a concern for wandering which has happened a few times in the last six months. He has had a challenging time finding help caring for her in his home. Plan: Cefalexin 500 mg q8 hours. F/u urine culture for sensitivities. F/u with PCP next month for support and resources for progression of dementia. Initial interview/exam /plan and documentation completed by Malachi Apple, CHIEF MARKETING OFFICER student. Edits and updates as necessary completed by KAYE Virk. 01/22/2024 Urinary incontinence, unspecified type (ICD-10 - R32) Ordered UA to rule out any infection --> UA +, started macrodantin pending culture. 05/13/2024 Health care maintenance (ICD-10 - Z00.00) Administered flu shot. Encouraged to get COVID vaccine. Time with patient in consultation: 20 minutes Time spent reviewing previous medical records or consulting with other providers: 3 minutes Time in medication management: 5 minutes Time documentin minutes Total time spent: 33 minutes 06/23/2024 Primary hypertension (ICD-10 - I10) #Malodorous urine: Most likely due to concentrated urine. Advised to drink plenty of fluids, as no other sx would not look for infection. #Alopecia: Sx improved, monitor for now. ON iron, recheck labs in f/u. #Confusion and disorientation : Mild increase, usually redirectable, will try increase lamotrigine to 2 tablets in the morning 1 tablet at afternoon. Continue Seroquel at current dose. #HTN: Values are at goal. Monitor BP. 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 Advised to drink plenty of fluids, as no other sx would not look for infection. #Alopecia: Sx improved, monitor for now. ON iron, recheck labs in f/u. #Confusion and disorientation : Mild increase, usually redirectable, will try increase lamotrigine to 2 tablets in the morning 1 tablet at afternoon. Continue Seroquel at current dose. #HTN: Values are at goal. Monitor BP. Time with patient in consultation: 30 minutes Time spent reviewing previous medical records or consulting with other providers: XX minutes Time in medication management: 8 minutes Time documentin minutes Total time spent: 44 minutes 05/13/2024 Encounter for immunization (ICD-10 - Z23) Patient presents for flu shot. Screening questions reviewed with patient. There was no contraindication to patient receiving the flu shot today. Consent received prior to injection. Vaccine Information Sheet offered to patient. Time with patient in consultation: 20 minutes Time spent reviewing previous medical records or consulting with other providers: 3 minutes Time in medication management: 5 minutes Time documentin minutes Total time spent: 33 minutes 01/22/[address] Wendy Doran by Babak chavarria medical billing representative, on 01/22/2024. I, Dr. Wendy Doran, have personally reviewed and agree with the information entered by the scribe. 05/13/2024 Other Prescription called in manually. Ashley Mckay LPN Scribed for Dr. Wendy Doran by Babak chavarria medical billing representative, on 05/13/2024. I, Dr. Wendy Doran, have personally reviewed and agree with the information entered by the scribe. Time with patient in consultation: 20 minutes Time spent reviewing previous medical records or consulting with other providers: 3 minutes Time in medication management: 5 minutes Time documentin minutes Total time spent: 33 minutes 06/23/[address] Wendy Doran by Babak chavarria medical billing representative, on 06/23/2024. I, Dr. Wendy Doran, have personally reviewed and agree with the information entered by the scribe. #Malodorous urine: Most likely due to concentrated urine. Advised to drink plenty of fluids, as no other sx would not look for infection. #Alopecia: Sx improved, monitor for now. ON iron, recheck labs in f/u. #Confusion and disorientation : Mild increase, usually redirectable, will try increase lamotrigine to 2 tablets in the morning 1 tablet at afternoon. Continue Seroquel at current dose. #HTN: Values are at goal. Monitor BP. Time with patient in consultation: 30 minutes Time spent reviewing previous medical records or consulting with other providers: XX minutes Time in medication management: 8 minutes Time documentin minutes Total time spent: 44 minutes Plan Of Treatment Next Appt Details Provider Name:Wendydonald Doran , 10/20/2024 12:00:00 PM, [address] [place] [address], [phone], Insurance Providers Payer Name Payer Address Payer Phone Subscriber Number Group Number Insured Name Patient Relationship to Insured Coverage Start Date Coverage End Date MEDICARE [employer] [address] [place] [phone] [id number] Wendy Olvera Self - patient is the insured [place] [employer] [address] [place] [address] [id number] Wendy Olvera Self - patient is the insured Medical (General) History Medical History History ICD Code Alzheimers Dementia Vitamin B12 deficiency Bronchitis/chronic bronchitis Type II DM HTN 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 Hyperlipidemia Sensorineural Hearing loss Reactive Airway Disease Impaired Glucose Tolerance Edema Actinic Keratosis Squamous Cell Carcinoma Urgency Incontinence 02/2021 Fell down stairs- Subdural Hemato ma Recurrent UTI's 10/2019 Osteopenia Closed Compression Fx of L3 Vertebra COVID Positive 12/2021 undefined Surgical History Surgery Date(Month/Year) [facility] 2011 Cataract extraction 2011 Right L4-5 Steroid Injection 12/2014 Hospitalization History Reason Date(Month/Year) [facility] hip fx 02/02-02/28/23 R superior and inferior pubic ramus comm inuted fx-[facility] 01/28-02/01/23 falls, dementia-[facility] to [facility] in [place] 05/30-06/07/21
--- OUTSIDE RECORDS SUMMARY | 2024-08-15 15:34 | XMS_ITS | Encounter Summary ---
[place] [address] Care Team Providers Care Ink Blender Name Role Phone Unavailable Primary Care Provider Unavailabl e Reason for Visit * Reason Onset Date Comments Follow-up 03/11/2023 Encounter Details Date Type Department Care Team (Late st Contact Info) Description 03/11/2023 Telephone Emergency Services at [facility] [address] [place] [id number] Maryam Jacob, RN Follow-up Social History Tobacco Use Types Packs/Day Years [...]
--- OUTSIDE RECORDS SUMMARY | 2024-08-15 15:34 | XMS_ITS | Encounter Summary ---
Author Organization [facility] [place] [address] Care Team Providers Care Conveyor Attendant Name Role Phone Unavailable Primary Care Provider Unavailabl e Encounter Details Date Type Department Care Team (Latest Contact Info) Description 03/10/2023 Travel Social History Tobacco Use Types Packs/Day Years [...]
--- OUTSIDE RECORDS SUMMARY | 2024-08-15 15:34 | XMS_ITS | Encounter Summary ---
Author Organization [facility] [place] [address] Care Team Providers Care Tapper Balance Wheel Screw Hole Name Role Phone Unavailable Primary Care Provider Unavailabl e Encounter Details Date Type Department Care Team (Late st Contact Info) Description 02/25/2023 3:00 PM EDT SNF Visit [facility] [address] [place] [phone] Aimee Neely APRN Dementia with behavioral disturbance (Primary Dx); Primary hypertension; Closed fracture of right inferior pubic ramus, with routine healing, subsequent encounter Social History Tobacco Use Types Packs/Day Years Used Date Smoking Tobacco: Never Assessed Sex and Gender Information Value Date Recorded Sex Assigned at Not on file Gender Identity Not on file Sexual Orientation Not on file documented as of this encounter Last Filed Vital Signs Vital Sign Reading Time Taken Comments Blood Pressure 122/76 02/25/2023 2:08 PM EDT Pulse 68 02/25/2023 2:08 PM EDT Temperature 36.2 ??C (97.2 ??F) 02/25/2023 2:08 PM ED T Respiratory Rate 17 02/25/2023 2:08 PM EDT Oxygen Saturation 92% 02/25/2023 2:08 PM EDT Inhaled Oxygen Concentration - - Weight 86.2 kg (190 lb) 02/25/2023 2:08 PM EDT Height - - Body Mass Index - - documented in this encounter Progress Notes * Aimee Neely APRN - 02/25/2023 3:00 PM EDT [facility] FACILITY DISCHARGE SUMMARY [facility] Facility Date: 02/25/23 Subjective: : 1935 PCP: Hortencia Jordan APRN Date of Admission to SNF: Date of Discharge from SNF: 02/27/23 Summary of preceding hospitalization: From admission note to [facility]: HPI / Events Leading to SNF Admission: Wendy Olvera is a 87 y.o. female with a h/o dementia, COPD, falls, HLD, DM2, HTN admitted to [facility] after a fall with R superior and infreior pubic Rami fractures.Admitted for PT/OT there and now here for short term rehab. Had been generally stable on herhome dose of seroquel with occ prn needs Summary of course at SNF: Wendy made progress during her stay at [facility] for postacute rehab. She participated in PT/OT and made gains. She is able to complete washing her face andupper body after set up and supervision. She is able to walk about the facility independently with her walker. She wanders about the facility self propelling her wheelchair or walking Responds to gentle redirection. Wanderguard placed while here to alert us if she tried to leave facility on her own. Treated with oral antibiotics for dental abscess. Has completed antibiotic course. No dental complaints today. Gabapentin dose increased while here due to family concern about pain. Had gradual dose reduction of quetiapine. Refuses midnight dose of quetiapine so quetiapine decreased to q 6 hours down from q 4 hours around the clock. Now ready for discharge home where she resides with her family who is her caregiver. Medication changes since SNF admission: -Gabapentin dose increased -GDR of quetiapine to q 6 hours rather than q 4 hours. Hadn't been taking midnight dose due to refusal. -Vitamin D 1000 units po qd added -Vitamin B12 1000 mcg po qd added Current medications: Medications 02/25/23 1057 Medication Sig Taking? QUEtiapine (SEROquel) 25 [...] as needed for Nausea. No Known Allergies Advance Directives Code Status: Full Code DPOA: Name: Marlon Olvera Alternate Name: Alternate Phone: Activated (if yes explain): Yes (Explain): dementia . POLST/COLST: No; If yes: Full Treatment Hospitalizations: Hospitalize, Unlimited Interventions Hospice (if yes identify agency and diagnosis): No Review of Systems Constitutional: Feels well. No fever, no chills Resp: No SOB, no cough, no wheeze CV: No chest pain Ext: + edema in bilateral ankles Skin: Negative Objective: BP 122/76 Pulse 68 Temp 36.2 ??C (97.2 ??F) Resp 17 Wt 86.2 kg (190 lb) SpO2 92% Physical Exam Vitals reviewed. HENT: Head: Normocephalic. Cardiovascular: Rate and Rhythm: Normal rate. Pulmonary: Effort: Pulmonary effort is normal. No respiratory distress. Abdominal: General: There is no distension. Palpations: Abdomen is soft. Musculoskeletal: Right lower leg: Edema present. Left lower leg: Edema present. Comments: Trace edema in both ankles. Neurological: Mental Status: She is alert. Mental status is at baseline. Psychiatric: Mood and Affect: Mood normal. Assessment and Plan: Discharge Location: home with family and services Tasks still to be addressed: Continued PT/OT, routine follow-up of comorbidities Planned Home Services: nursing, PT/OT, [facility] 45 minutes of this 60 minute visit was spent counseling and/or coordinating with nursing staff, patient and/or family regarding evaluation of current orders and plan. Future Appointments Date Time Provider Department Center 02/25/2023 3:00 PM Aimee Neely APRN [facility] None Subjective: Chief Complaint / Reason for Visit: Routine weekly visit History of Present Illness: 88 year old female at [facility] for post acute care after hospitalization at [facility] following a fall where she suffered right superior and inferior pubic rami fractures. PMH is significant for dementia with behavioral disturbance, COPD, falls, HLD, DM 2, HTN. At [facility] for post acute care including short term rehab. 2 weeks ago treated for dental abscess with oral antibiotics. Antibiotic course done. No further symptoms of dental abscess. Minimal pain from fractures. Participating in PT/OT-making gains. Still with some wandering but usually responds to gentle redirection. Son concerned about her chronic neuropathic pain and requests that morning gabapentin be increased to 600 mg. Overall improving. Seen today for routine weekly [...] every 8 hours as needed for Nausea. Objective: Assessment and Plan: Future Appointments Date Time Provider Department Center 02/25/2023 3:00 PM Aimee Neely APRN [facility] None documented in this encounter Plan of Treatment Not on file documented as of this encounter Visit Diagnoses Diagnosis Dementia with behavioral disturbance- Primary Dementia, unspecified, with behavioral disturbance Primary hypertension Unspecified essential hypertension Closed fracture of right inferior pubic ramus, with routine healing, subsequent encounter documented in this encounter
--- OUTSIDE RECORDS SUMMARY | 2024-08-15 15:34 | XMS_ITS | Encounter Summary ---
Author Organization [facility] [place] [address] Care Team Providers Care Progressive Care Nurse Name Role Phone Unavailable Primary Care Provider Unavailabl e Encounter Details Date Type Department Care Team (Late st Contact Info) Description 2023 3:00 PM EDT SNF Visit [facility] [address] [place] [phone] Vic Jimenes MD [facility] [place] [address] DH PATIENT NOT SEEN Social History Tobacco Use Types Packs/Day Years Used Date Smoking Tobacco: Never Assessed Sex and Gender Information Value Date Recorded Sex Assigned at Not on file Gender Identity Not on file Sexual Orientation Not on file documented as of this encounter Progress Notes * Vic Jimenes MD - 2023 3:00 PM EDT See other encounter from the same dayThis patient was not seen in this encounter. documented in this encounter Plan of Treatment Not on file documented as of this encounter Visit Diagnoses Diagnosis DH PATIENT NOT SEEN documented in this encounter
--- OUTSIDE RECORDS SUMMARY | 2024-08-15 15:34 | XMS_ITS | Encounter Summary ---
Author Organization [place] [address] Care Team Providers Care Managing Supervisor Name Role Phone Unavailable Primary Care Provider Unavailabl e Encounter Details Date Type Department Care Team ([facility] st Contact Info) Description 02/20/2024 Interpretation Only [address] [phone] Abelino Laws MD [address] [place] [address] Social History Tobacco Use Types Packs/Day Years [...] Name Priority Date/Time Associated Diagnosis Comments CT HEAD WO CONTRAST (GENERIC) STAT 02/20/2024 7:47 PM EDT documented in this encounter Results * CT Head wo Contrast (Generic) (02/20/2024 7:47 PM EDT) PT CLASS E DH RAD ADMITDTTM [id number] DH RAD PT RAD INFO [id number]^Broadw ater^Abelino^Lenny k RAD EXAM DESC CTHEAD^CT Head w/o Contrast^[facility] WORKSTATION ID [id number] [facility] Anatomical Region Laterality Modality Head Computed Tomogra [...] who have questions please contact the health gericare aide teacher that requested your imaging first. ? Electronically signed by: Adiel Candelario DO [facility] ??([phone]), at 02/20/2024 8:08 PM Narrative 02/20/2024 8:08 [...] disease noted. Bilateral TMJ arthritis. Procedure Note Adiel Candelario DO - 02/20/2024 EXAMINATION: CT Head [...] patients who have questions please contactthe health gericare aide teacher that requested your imaging first. Electronically signed by: Adiel Candelario DO [facility]([phone]), at 02/20/2024 8:08 PM Abelino Laws MD IMG CT ORDERABLES documented in this encounter Visit Diagnoses Not on filedocumented in this encounter
--- OUTSIDE RECORDS SUMMARY | 2024-08-15 15:34 | XMS_ITS | Encounter Summary ---
[place] [address] Care Team Providers Care Mind Reader Name Role Phone Unavailable Primary Care Provider Unavailabl e Encounter Details Date Type Department Care Team (Late st Contact Info) Description 03/10/2023 7:45 PM EDT Ancillary Procedure Radiology Xray at [facility] [place] [phone] Social History Tobacco Use Types Packs/Day Years [...] AND LATERAL STAT 03/10/2023 7:57 PM EDT documented in this encounter Results [...] who have questions please contact the health human services care specialist that requested your imaging first. ? Electronically signed by: Kelsey Cody MD, [facility] ([phone]), at 03/10/2023 8:07 PM Narrative 03/10/2023 8:07 [...] patients who have questions please contactthe health human services care specialist that requested your imaging first. Electronically signed by: Kelsey Cody MD, [facility]([phone]), at 03/10/2023 8:07 PM Ally Alaniz MD IMG DX ORDERABLES documented in this encounter Visit Diagnoses Not on filedocumented in this encounter
--- OUTSIDE RECORDS SUMMARY | 2024-08-15 15:34 | XMS_ITS | Encounter Summary ---
Author Organization Formerly [facility] [place] [address] Care Team Providers Care Armed Custom Protection Officer Name Role Phone Unavailable Primary Care Provider Unavailabl e Encounter Details Date Type Department Care Team (Late st Contact Info) Description 02/18/2023 3:00 PM EDT SNF Visit [facility] [address] [place] [id number] Aimee Neely APRN Dementia with behavioral disturbance [...] Sign Reading Time Taken Comments Blood Pressure 130/70 02/18/2023 10:51 AM EDT Pulse 70 02/18/2023 10:51 AM EDT Temperature 36.2 ??C (97.2 ??F) 02/18/2023 10:51 AM E DT Respiratory Rate 18 02/18/2023 10:51 AM EDT Oxygen Saturation 98% 02/18/2023 10:51 AM EDT Inhaled Oxygen Concentration - - Weight 83.7 kg (184 lb 8 oz) 02/18/2023 10:51 AM EDT Height - - Body Mass Index - - documented in this encounter Progress Notes * Aimee Neely APRN - 02/18/2023 3:00 PM EDT [facility] FACILITY DISCHARGE SUMMARY [facility] Date: 02/18/23 Subjective: : 1935 PCP: Hortencia Jordan APRN Date of Admission to SNF: Date of Discharge from SNF: 02/20/23 Summary of preceding hospitalization: From admission note to [facility]: HPI / Events Leading to SNF Admission: Wendy Olvera is a 87 y.o. female with a h/o dementia, COPD, falls, HLD, DM2, HTN admitted to [facility] after a fall with R superior and infreior pubic Rami fractures.Admitted for PT/OT there and now here for short term rehab. Had been generally stable on herhome dose of seroquel with occ prn needs Summary of course at SNF: Wendy made progress during her stay at [facility] for postacute rehab. She participated in PT/OT and made gains. She is able to complete washing her face andupper body after set up and supervision. She is able to take a few steps with her walker. She wanders about the facility self propelling her wheelchair. Responds to gentle redirection. Wanderguard placed while here to alert us if she tried to leave facility on her own. Treated with oral antibioticsfor dental abscess. Has completed antibiotic course. No dental complaints today. Gabapentin dose increased today due to son's concern about her pain. GDR of quetiapine done today. Refuses midnight dose of quetiapine so quetiapine decreased to q 6 hours down from q 4 hours around the clock. Now ready for discharge home where she resides with her family who is her caregiver. Medication changes since SNF admission: -Gabapentin 600 mg po q am added. Gabapentin 300 mg continued TID. -GDR of quetiapine to q 6 hours rather than q 4 hours. Hadn't been taking midnight dose due to refusal. -Vitamin D 1000 units po qd added -Vitamin B12 1000 mcg po qd added Current medications: Medications 02/18/23 1057 Medication Sig Taking? QUEtiapine [...] in bilateral ankles Skin: Negative Objective: BP 130/70 Pulse 70 Temp 36.2 ??C (97.2 ??F) Resp 18 Wt 83.7 kg (184 lb 8 oz) SpO2 98% Physical Exam Vitals reviewed. HENT: Head: Normocephalic. [...] of comorbidities Planned Home Services: nursing, PT/OT, SENIOR SYSTEMS PROGRAMMER 45 minutes of this 60 minute visit was spent counseling and/or coordinating with nursing staff, patient and/or family regarding evaluation of current orders and plan. No future appointments. Subjective: Chief Complaint / Reason for Visit: Routine weekly visit History of Present Illness: 88 year old female at [facility] for post acute care after hospitalization at [facility] following a fall where she suffered right superior and inferior pubic rami fractures. PMH is significant for dementia with behavioral disturbance, COPD, falls, HLD, DM 2, HTN. At [facility] for post acute care including short term [...] Future Appointments Date Time Provider Department Center 02/18/2023 3:00 PM Aimee Neely APRN [facility] None documented in this encounter Plan of Treatment Not on file documented as of this encounter Visit Diagnoses Diagnosis Dementia with behavioral disturbance- Primary Dementia, unspecified, with behavioral disturbance Primary hypertension Unspecified essential hypertension Closed fracture of right inferior pubic ramus, with routine healing, subsequent encounter documented in this encounter
--- OUTSIDE RECORDS SUMMARY | 2024-08-15 15:35 | XMS_ITS | Encounter Summary ---
[place] [address] Care Team Providers Care Tour Driver Name Role Phone Unavailable Primary Care Provider Unavailabl e Encounter Details Date Type Department Care Team (Latest Contact Info) Description 08/15/2022 Travel Social History Tobacco Use Types Packs/Day [...]
--- OUTSIDE RECORDS SUMMARY | 2024-08-15 15:35 | XMS_ITS | Encounter Summary ---
[place] [address] Care Team Providers Care Assistant Hairstylist Name Role Phone Unavailable Primary Care Provider Unavailabl e Encounter Details Date Type Department Care Team (Late st Contact Info) Description 02/05/2022 Interpretation Only [address] [phone] Butch Silver MD [address] [place] [phone] Social History Tobacco Use Types Packs/Day Years [...] Comments CT HEAD WO CONTRAST (GENERIC) STAT 02/05/2022 9:19 AM EDT documented in this encounter Results * CT Head wo Contrast (Generic) (02/05/2022 9:19 AM EDT) PT CLASS E RAD ADMITDTTM RAD PT RAD INFO [id number]^C HANDER^SUNEE R RAD EXAM DESC CTHEAD^CT HEAD WO CNTRST^RIS RAD Anatomical Region Laterality Modality Head Computed Tomogra phy Impressions 02/05/2022 9:26 AM EDT Unchanged appearance of encephalomalacic changes in the frontal lobes bilaterally. No acute intracranial pathology detected. Thank you for letting us participate in the care of this patient. ??If you are a health care provider and have any questions regarding this report, please contact the number below. ??For patients who have questions please contact the health home care chaplain that requested your imaging first. ? Electronically signed by: Favian Landeros MD, [facility] ([phone]), at 02/05/2022 9:26 AM Narrative 02/05/2022 9:26 AM EDT EXAMINATION: CT HEAD WO CNTRST CLINICAL HISTORY: ams TECHNIQUE: CT head performed without intravenous contrast administration. COMPARISON: August 19, 2021 FINDINGS: No acute intracranial hemorrhage, mass, mass effect, or extra-axial fluid collection. Unchanged bilateral frontal lobe encephalomalacia. No evidence of shift. The calvarium is intact. 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 Procedure Note Favian Landeros MD - 02/05/2022 EXAMINATION: CT HEAD WO CNTRST CLINICAL HISTORY: ams TECHNIQUE: CT head performed without intravenous contrast administration. COMPARISON: August 19, 2021 FINDINGS: No acute intracranial hemorrhage, mass, mass effect, or extra-axialfluid collection. Unchanged bilateral frontal lobe encephalomalacia. No evidenceof shift. The calvarium is intact. Hyperostosis frontalis changes are againseen. IMPRESSION Unchanged appearance of encephalomalacic changes in the frontal lobes bilaterally. No acute intracranial pathology detected. Thank you for letting us participate in the care of this patient. If youare a health care provider and have any questions regarding this report,please contact the number below. For patients who have questions please contactthe health home care chaplain that requested your imaging first. Butch Silver MD IMG CT ORDERABLES documented in this encounter Visit Diagnoses Not on filedocumented in this encounter
--- OUTSIDE RECORDS SUMMARY | 2024-08-15 15:35 | XMS_ITS | Encounter Summary ---
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 Hortencia Jordan APRN [address] [place] [address] Psychiatric Dermatology [address] [place] [address] Referral ID Status Reason Start Date Expiration Date V isits Requested Visits Authorized [id number] Closed Consult, Test & Treat PCP Updated and/or Approved 03/30/2022 03/30/2023 12 12 Encounter Details Date Type Department Care Team (Late st Contact Info) Description 07/02/2022 11:00 AM EST Office Visit Dermatology at [facility] [address] [place] [phone] Wanda De Anda MD Neoplasm of connective and soft tissue; Seborrheic keratoses Social History Tobacco Use Types Packs/Day Years Used Date Smoking Tobacco: Never Assessed Sex and Gender Information Value Date Recorded Sex Assigned at Not on file Gender Identity Not on file Sexual Orientation Not on file documented as of this encounter Progress Notes * Wanda De Anda MD - 07/02/2022 11:00 AM EST Images from the original note were not included. DEPARTMENT OF DERMATOLOGY Medical Dermatology Clinic Note Provider: Wanda De Anda MD Patient's preferred name Wendy Preferred contact method for results []Phone []myD-H []Letter Detailed phone message OK? Y Are there any other people with whom we may discuss your care? Y Past Medical History Date, location, treatment Melanoma ? Dysplastic nevi N SCC N BCC N AKs N UV Exposure & Protection + history of blistering sunburn Other relevant past medical history N Family History Details Melanoma N NMSC N Other relevant family history N Social History Occupation: retired Hobbies: ? Other: Marlon (DPOA, son) Pre-Procedure Questions Details Allergy to lidocaine, epinephrine, Dermabond, chlorhexidine, or adhesives N Bleeding disorder or blood thinners N Implanted devices (Pacemaker, defibrillator, deep brain stimulator, cochlear implant) N History of Present Illness: Wendy Olvera is a 87 y.o. Patient is referred to the clinic at the request of Hortencia Jordan for lesion on the left lower leg. -patient here with son Marlon for a lesion on the left lower leg that has fallen off Review of Systems: General: Feeling well. Skin: No other skin concerns. Medications: Reviewed in eD-H Allergies: Reviewed in eD-H Skin Examination: Focused skin examination of the B/L legs, face and back was normal with the exception of the findings below. Assessment/Plan DDx: Favor SCC vs Other - On the left lateral upper enriquez, 1.1cm pink plaque - (Figure 1) - After review of risks and benefits, joint decision made to pursue shave biopsy today. Procedure: Skin biopsy by shave technique Location: left lateral upper enriquez Discussed indications for procedure and expectations including risks and benefits. Verbal consent obtained. Skin prep with alcohol. Local anesthesia with 1% lidocaine, 1/100,000 epinephrine. A sampleof the lesion was removed by shave technique to the level of the dermis and submitted to Pathology.Hemostasis obtained. There were no complications; the patient tolerated the procedure well. The wound was dressed. Post-procedure expectations, wound care and activity restrictions were reviewed. Follow-up based on pathology results. #. Seborrheic Keratoses - Scattered brown and flesh colored waxy stuck on plaques located on the back - Reassured of benign nature Figure 1 Photo(s) taken and charted with patient's verbal consent. Other: ??? N/A RTC: Pending pathology. Scribe attestation: Beba Schwarz [facility] has performed the documentation for this encounter inthe presence of and acting as a scribe for Wanda De Anda MD. I performed the above scribed service and agree with the accuracy of the documentation in this encounter. Reviewed and signed by: Wanda De Anda MD Dermatology [facility] Patient seen and evaluated with staff graduate internship: Maria Esther Montes MD Department of Dermatology [facility] * Maria Esther Montes MD - 07/02/2022 11:00 AM EST I directly supervised Dr. De Anda during this office visit. Dr. De Anda presented the history and physical exam to me. I, then, saw and examined this patient with Dr. De Anda . We reviewed the history and pertinent details and I confirmed the physical findings. I agree with the details of the history andphysical exam as documented in Dr. De Anda's note. MARIA ESTHER MONTES MD Staff Physician * Wanda De Anda MD - 07/02/2022 11:00 AM EST Called the patient to discuss the biopsy result. Talked with patient's daughter who makes medical decisions for the patient. Discussed that the biopsy showed a regressing KA which can resolve by itself. Dicusse further treatment with ED&C vs continued monitoring. Daughter leaning towards ED&C and chart routed to [place] for scheduling. 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 Location: [facility] The signing pathologist has (i) examined the relevant preparation(s) for the specimen(s) and (ii) rendered or confirmed the diagnosis(es). . 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 of Pathology, [place] [address] Boat Operator: Selina Corley MD, FCAP, ??CLIA Certificate: [id number] DISCUSSION The lesion has some histopathologic features that can be seen in a regressing keratoacanthoma. In addition, there are several squamous-lined cysts in the dermis with background sca, focal granulomatous inflammation, and angioplasia. It is unclear if these cysts are related to the primary lesion or represent a secondary process. Clinical correlation is recommended. ADDITIONAL STUDIES Multiple deeper levels were examined. SPECIMEN(S) SUBMITTED A - left lateral upper enriquez, skin shave biopsy (1) CLINICAL INFORMATION DDX: Favor SCC vs other. On the left lateral upper enriquez 1.1 cm pink plaque SPECIMEN PROCESSING A - Labeled/Fixative: Patient demographics, formalin. Quantity/Size: ??Single, 1.2 x 1.0 x 0.2 cm. Tissue Description: Irregular shave of granular, arredondo-pink skin. Sections/Processin g: Inked, serially sectioned and entirely submitted in 1 cassette labeled A1. ??pps 07/09/2022 2:47 PM EST [facility] SPECIMEN FROM SKIN / Unknown 07/02/2022 11:46 AM EST 07/02/2022 11:46 AM EST Wanda De Anda MD PATHOLOGY/[place] [address] * Specimen to Pathology (07/02/2022 11:46 AM EST) AP Specimen 07/02/2022 11:4 6 AM EST 07/02/2022 11:46 AM EST Narrative [facility] - 07/02/2022 11:46 AM EST Specimen requisition ordered. ??Separate Pathology report to follow Maria Esther Montes MD PATHOLOGY/[place] [address] documented in this encounter Visit Diagnoses Diagnosis Neoplasm of connective and soft tissue Neoplasm of unspecified nature of bone, soft tissue, and skin Seborrheic keratoses documented in this encounter
--- OUTSIDE RECORDS SUMMARY | 2024-08-15 15:35 | XMS_ITS | Encounter Summary ---
Author Organization Formerly [facility] [place] [address] Care Team Providers Care Global Sales Manager Name Role Phone Unavailable Primary Care Provider Unavailabl e Encounter Details Date Type Department Care Team (Late st Contact Info) Description 08/19/2021 Interpretation Only [address] [phone] Isael Vo Jr., DO [address] [place] [address] Social History Tobacco Use Types Packs/Day Years Used Date Smoking Tobacco: Never Assessed Sex and Gender Information Value Date Recorded Sex Assigned at Not on file Gender Identity Not on file Sexual Orientation Not on file documented as of this encounter Plan of Treatment Not on file documented as of this encounter Procedures Procedure Name Priority Date/Time Associated Diagnosis Comments CT CERVICAL SPINE WO CONTRAST STAT 08/19/2021 9:21 PM EST documented in this encounter Results * CT Cervical Spine wo Contrast (08/19/2021 9:21 PM EST) PT CLASS E RAD ADMITDTTM RAD PT RAD INFO [id number]^B ROWN^ISAEL^ A DH RAD EXAM DESC CTCSPI^CT C-SPINE WO CNTRST^RIS RAD Anatomical Region Laterality Modality C-spine Computed Tomogra phy Impressions 08/19/2021 9:36 PM EST 1. ??No acute intracranial hemorrhage. 2. ??Left frontal lateral scalp contusion and hematoma, and right frontoparietal scalp laceration with overlying mercedes. No underlying calvarial fracture. 3. ??No acute fracture or traumatic malalignment of the cervical spine. Thank you for letting us participate in the care of this patient. ??If you are a health care provider and have any questions regarding this report, please contact the number below. ??For patients who have questions please contact the health personal care aide that requested your imaging first. ? Electronically signed by: Vangie Higginbotham MD, [facility] ([phone]), at 08/19/2021 9:36 PM Narrative 08/19/2021 9:36 PM EST EXAMINATION: CT HEAD WO CNTRST, CT C-SPINE WO CNTRST CLINICAL HISTORY: Fall TECHNIQUE: CT head and cervical spine performed without intravenous contrast administration. COMPARISON: None. FINDINGS: Head: There is no acute intracranial hemorrhage or extra-axial collection. Amorphous bilateral globus pallidus calcifications are noted. Encephalomalacia within the bilateral anterior frontal lobes is noted, compatible with sequela of remote injury and/or infarcts. There is age-related volume loss with prominence of the cerebral sulci and ex vacuo dilation of the ventricles. No evidence of acute infarct. No mass or mass effect. Basal cisterns are patent. Focal left lateral frontal scalp contusion with hematoma and swelling. No underlying calvarial fracture. Cutaneous mercedes overlie the right frontoparietal scalp without significant edema. No underlying fracture. Changes of bilateral lens replacement are noted. The paranasal sinuses and mastoid air cells are clear. C-spine: The craniocervical junction is intact. Normal cervical alignment. Vertebral body heights are preserved and there is no acute fracture, subluxation or dislocation. There are multilevel degenerative disc changes with partially calcified disc osteophytes at multiple levels. Paravertebral soft tissues are normal. Procedure Note Vangie Higginbotham MD - 08/19/2021 EXAMINATION: CT HEAD WO CNTRST, CT C-SPINE WO CNTRST CLINICAL HISTORY: Fall TECHNIQUE: CT head and cervical spine performed without intravenous contrast administration. COMPARISON: None. FINDINGS: Head: There is no acute intracranial hemorrhage or extra-axialcollection. Amorphous bilateral globus pallidus calcifications are noted.Encephalomalacia within the bilateral anterior frontal lobes is noted, compatible withsequela of remote injury and/or infarcts. There is age-related volume loss withprominence of the cerebral sulci and ex vacuo dilation of the ventricles. No evidenceof acute infarct. No mass or mass effect. Basal cisterns are patent. Focal left lateral frontal scalp contusion with hematoma and swelling.No underlying calvarial fracture. Cutaneous mercedes overlie the right frontoparietal scalp without significant edema. No underlying fracture.Changes of bilateral lens replacement are noted. The paranasal sinuses and mastoidair cells are clear. C-spine: The craniocervical junction is intact. Normal cervicalalignment. Vertebral body heights are preserved and there is no acute fracture,subluxation or dislocation. There are multilevel degenerative disc changes withpartially calcified disc osteophytes at multiple levels. Paravertebral soft tissuesare normal. IMPRESSION 1. No acute intracranial hemorrhage. 2. Left frontal lateral scalp contusion and hematoma, and rightfrontoparietal scalp laceration with overlying mercedes. No underlying calvarialfracture. 3. No acute fracture or traumatic malalignment of the cervical spine. Thank you for letting us participate in the care of this patient. If youare a health care provider and have any questions regarding this report,please contact the number below. For patients who have questions please contactthe health personal care aide that requested your imaging first. Electronically signed by: Vangie Higginbotham MD, [facility]([phone]), at 08/19/2021 9:36 PM Isael Vo Jr., DO IMG CT ORDERABLES documented in this encounter Visit Diagnoses Not on filedocumented in this encounter
--- OUTSIDE RECORDS SUMMARY | 2024-08-15 15:35 | XMS_ITS | Encounter Summary ---
[place] [address] Care Team Providers Care Right Of Way Man Name Role Phone Unavailable Primary Care Provider Unavailabl e Encounter Details Date Type Department Care Team (Late st Contact Info) Description 07/17/2022 Telephone Dermatology at [facility] [address] [place] [address] Wanda De Anda MD Social History Tobacco Use Types Packs/Day Years Used Date Smoking Tobacco: Never Assessed Sex and Gender Information Value Date Recorded Sex Assigned at Not on file Gender Identity Not on file Sexual Orientation Not on file documented as of this encounter Miscellaneous Notes * Telephone Encounter - Wanda De Anda MD - 07/17/2022 3:56 PM EST Conveyed the result to patient's daughter * Telephone Encounter - Ashley De La Fuente - 07/17/2022 10:18 AM EST The son of Wendy Olvera called and is checking to see if biopsy results are available? Please reach out to Marlon at [phone]. documented in this encounter Plan of Treatment Not on file documented as of this encounter Visit Diagnoses Not on filedocumented in this encounter
--- OUTSIDE RECORDS SUMMARY | 2024-08-15 15:35 | XMS_ITS | Encounter Summary ---
Author Organization [facility] [place] [address] Care Team Providers Care Mini Baccarat Dealer Name Role Phone Unavailable Primary Care Provider Unavailabl e Encounter Details Date Type Department Care Team (Late st Contact Info) Description 08/19/2021 Interpretation Only [address] [phone] Isael Vo Jr., DO [address] [place] [address] Social History Tobacco Use Types Packs/Day Years Used Date Smoking Tobacco: Never Assessed Sex and Gender Information Value Date Recorded Sex Assigned at Not on file Gender Identity Not on file Sexual Orientation Not on file documented as of this encounter Plan of Treatment Not on file documented as of this encounter Procedures Procedure Name Priority Date/Time Associated Diagnosis Comments XR SHOULDER LEFT STAT 08/19/2021 9:18 PM EST documented in this encounter Results * XR Shoulder Left (Generic) (08/19/2021 9:18 PM EST) PT CLASS E RAD ADMITDTTM RAD PT RAD INFO [id number]^BR OWN^ISAEL^A DH RAD EXAM DESC XRSHDL^XR LEFT SHOULDER ROUTINE 2+ VWS^RIS RAD Anatomical Region Laterality Modality Shoulder Left Radiographic Teresa ging Impressions 08/19/2021 9:45 PM EST 1. ??Normal left glenohumeral fracture or dislocation. 2. 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 Consider dedicated clavicle radiographs for further evaluation as clinically indicated. 3. ??Left posterior fifth and sixth and anterolateral fifth, sixth and possibly seventh rib fractures. Recommend CT for further evaluation. Thank you for letting us participate in the care of this patient. ??If you are a health care provider and have any questions regarding this report, please contact the number below. ??For patients who have questions please contact the health nanny caregiver that requested your imaging first. ? Electronically signed by: Vangie Higginbotham MD, [facility] ([phone]), at 08/19/2021 9:45 PM Narrative 08/19/2021 9:45 PM EST EXAMINATION: XR LEFT SHOULDER ROUTINE 2+ VWS CLINICAL HISTORY: Fall TECHNIQUE: 3 views COMPARISON: None. FINDINGS: The head of the humerus is well aligned with the left glenoid, without acute fracture or dislocation. There is left AC joint arthropathy, with a bulky distal left clavicle that is incompletely evaluated on shoulder radiographs. There are minimally displaced left posterior fifth and sixth posterior rib fractures, with additional fifth, sixth and possibly seventh anterolateral rib fractures as well. No appreciable pneumothorax. Procedure Note Vangie Higginbotham MD - 08/19/2021 EXAMINATION: XR LEFT SHOULDER ROUTINE 2+ VWS CLINICAL HISTORY: Fall TECHNIQUE: 3 views COMPARISON: None. FINDINGS: The head of the humerus is well aligned with the left glenoid, withoutacute fracture or dislocation. There is left AC joint arthropathy, with a bulkydistal left clavicle that is incompletely evaluated on shoulder radiographs.There are minimally displaced left posterior fifth and sixth posterior ribfractures, with additional fifth, sixth and possibly seventh anterolateral rib fracturesas well. No appreciable pneumothorax. IMPRESSION 1. Normal left glenohumeral fracture or dislocation. 2. Left AC joint arthropathy with incompletely evaluated distal leftclavicle. Consider dedicated clavicle radiographs for further evaluation asclinically indicated. 3. Left posterior fifth and sixth and anterolateral fifth, sixth andpossibly seventh rib fractures. Recommend CT for further evaluation. Thank you for letting us participate in the care of this patient. If youare a health care provider and have any questions regarding this report,please contact the number below. For patients who have questions please contactthe health nanny caregiver that requested your imaging first. Isael Vo Jr., DO IMG DX ORDERABLES documented in this encounter Visit Diagnoses Not on filedocumented in this encounter
--- OUTSIDE RECORDS SUMMARY | 2024-08-15 15:35 | XMS_ITS | Encounter Summary ---
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 Hortencia Jordan APRN [address] [place] [address] [facility] Dermatology [address] [place] [address] Referral ID Status Reason Start Date Expiration Date V isits Requested Visits Authorized [id number] Closed Consult, Test & Treat PCP Updated and/or Approved 03/30/2022 03/30/2023 12 12 Encounter Details Date Type Department Care Team (Latest Contact Info) Description 03/30/2022 Transcribe Orders eDH Incoming Referrals [phone] Hortencia Jordan APRN [address] [place] [address] Skin lesion of left leg Social History Tobacco Use Types Packs/Day Years Used Date Smoking Tobacco: Never Assessed Sex and Gender Information Value Date Recorded Sex Assigned at Not on file Gender Identity Not on file Sexual Orientation Not on file documented as of this encounter Plan of Treatment Scheduled Referrals Name Type Priority Associated Diagnoses Order Schedule Referral to Dermatology Outpatient Referral Routine Skin lesion of left leg Ordered: 03/30/2022 documented as of this encounter Visit Diagnoses Diagnosis Skin lesion of left leg Unspecified disorder of skin and subcutaneous tissue documented in this encounter
--- OUTSIDE RECORDS SUMMARY | 2024-08-15 15:35 | XMS_ITS | Continuity of Care Document ---
Author Organization Unknown Problems Icd10 code Snomed code Description Diagnosed date Clinicia n M25.561 [id number] Pain in right knee [id number] FABIANA Montalvo M17.0 [id number] Bilateral primar y osteoarthritis of knee 20221224 FABIANA Kramer Encounters Encounter type Encounter date Location Comment Clinician Rfv icd10 Rfv snomed Member subscriber id Insurance type ORTHO 20 NEW PATIENT [id number] [facility] Orthopedic s ORTHO 20 NEW PATIENT FABIANA Kramer M25.56 1 [id number] Medicare Part B ACUTE - ESTABLISHED 20221224 [facility] Orthopedic s Problem FABIANA Kramer [id number] Medicare Part B ACUTE - ESTABLISHED 20221224 [facility] Orthopedic s Problem FABIANA Kramer M17.0 [id number] Medicare Part B ORTHO 20 NEW PATIENT [id number] [facility] Orthopedic s ORTHO 20 NEW PATIENT FABIANA Kramer [id number] Medicare Part B Medications Id ndc Id rxnorm Id other Name Dose Sig Frequency Stop date Quantity [id number] [id number] pravastatin 20 mg tablet 1 Take 1 tablet every day by oral route. every day [id number] HM Vitamin B-12 TR 1000 mcg tablet,extend ed release Take by oral route. [id number] 815367 Y76260 Bactrim DS 800 mg-160 mg tablet 1 Take 1 tablet every 12 hours by oral route for 10 days. every 12 hours 91601482 07924831603 640921 R215170 Bactrim DS 800 mg-160 mg tablet 1 Take 1 tablet every 12 hours by oral route for 10 days. every 12 hours 01354205 20 80700663172 352232 M775605 gabapentin 400 mg capsule 1 Take 1 capsule every day by oral route. every day [id number] 245323 [id number] quetiapine 50 mg tablet 1.5 Take 1.5 tablets twice a day by oral route. twice a day 473763 O55946 pravastatin 62505342 05538697402 3500058 X324977 albuterol sulf 90 mcg/actuation breath activated powder inhaler,senso r 2 Inhale 2 puffs every 4 hours by inhalation route. every 4 hours 02486405786 117347 W702009 quetiapine 25 mg tablet 1 Take 1 tablet twice a day by oral route as needed. twice a day Y05975 lisinopril 38088024 13956990657 052057 N083653 mirtazapine 7.5 mg tablet 1 Take 1 tablet every day by oral route at bedtime. every day C219855 Vitamin D3 T17850 albuterol sulfate 80296792 14071669743 578939 O808771 gabapentin 600 mg tablet 1 Take 1 tablet twice a day by oral route. twice a day 25232167333 825643 T825949 quetiapine 25 mg tablet 1 Take 1 tablet twice a day by oral route. twice a day
--- OUTSIDE RECORDS SUMMARY | 2024-08-15 15:35 | XMS_ITS | Encounter Summary ---
[place] [address] Care Team Providers Care Wringer Operator Name Role Phone Unavailable Primary Care Provider Unavailabl e Encounter Details Date Type Department Care Team (Late st Contact Info) Description 07/18/[address] [facility] [address] [place] [address] Wanda De Anda MD Social History Tobacco Use Types Packs/Day Years Used Date Smoking Tobacco: Never Assessed Sex and Gender Information Value Date Recorded Sex Assigned at Not on file Gender Identity Not on file Sexual Orientation Not on file documented as of this encounter Miscellaneous Notes * Telephone Encounter - Elba Roland - 07/18/2022 9:05 AM EST I called to schedule ED&C and left a voicemail requesting a call back. documented in this encounter Plan of Treatment Not on file documented as of this encounter Visit Diagnoses Not on filedocumented in this encounter
--- OUTSIDE RECORDS SUMMARY | 2024-08-15 15:35 | XMS_ITS | Encounter Summary ---
[place] [address] Care Team Providers Care Spring Machine Operator Name Role Phone Unavailable Primary Care Provider Unavailabl e Encounter Details Date Type Department Care Team (Latest Contact Info) Description 07/02/2022 Travel Social History Tobacco Use Types Packs/Day [...]
--- OUTSIDE RECORDS SUMMARY | 2024-08-15 15:35 | XMS_ITS | Encounter Summary ---
[place] [address] Care Team Providers Care Recording Artist Name Role Phone Unavailable Primary Care Provider Unavailabl e Encounter Details Date Type Department Care Team (Late st Contact Info) Description 03/13/2022 Interpretation Only [facility] [address] [place] [address] Bear Delgado PA [address] [place] [address] Social History Tobacco Use Types Packs/Day Years Used Date Smoking Tobacco: Never Assessed Sex and Gender Information Value Date Recorded Sex Assigned at Not on file Gender Identity Not on file Sexual Orientation Not on file documented as of this encounter Plan of Treatment Not on file documented as of this encounter Procedures Procedure Name Priority Date/Time Associated Diagnosis Comments XR KNEE 4 OR MORE VIEWS BILAT Routine 03/13/2022 11:01 AM EDT documented in this encounter Results * XR Knee 4 or more views Bilat (03/13/2022 11:01 AM EDT) PT CLASS O RAD ADMITDTTM RAD PT RAD MD INFO [id number]^ZAYRA [place]^BEAR RAD EXAM DESC XKN4B^XR RIGHT KNEE COMPLETE (4VIEWS)^RIS RAD Anatomical Region Laterality Modality Knee Bilateral Radiographic Teresa ging Impressions 03/13/2022 11:04 AM EDT Degenerative arthropathy changes as above. No acute fracture or dislocation. Thank you for letting us participate in the care of this patient. ??If you are a health care provider and have any questions regarding this report, please contact the number below. ??For patients who have questions please contact the health pharmacy care coordinator that requested your imaging first. ? Electronically signed by: Favian Landeros MD, [facility] ([phone]), at 03/13/2022 11:04 AM Narrative 03/13/2022 11:04 AM EDT EXAMINATION: XR RIGHT KNEE COMPLETE (4VIEWS) CLINICAL HISTORY: Pain in right knee TECHNIQUE: AP standing, schuss and sunrise views of both knees, lateral view of the right knee COMPARISON: None FINDINGS: Subjectively decreased bone mineralization. Symmetric bilateral loss of lateral joint space accompanied by marginal productive changes in all 3 compartments. Normal patellofemoral alignment. Procedure Note Favian Landeros MD - 03/13/2022 EXAMINATION: XR RIGHT KNEE COMPLETE (4VIEWS) CLINICAL HISTORY: Pain in right knee TECHNIQUE: AP standing, schuss and sunrise views of both knees, lateral view of theright knee COMPARISON: None FINDINGS: Subjectively decreased bone mineralization. Symmetric bilateral loss oflateral joint space accompanied by marginal productive changes in all 3compartments. Normal patellofemoral alignment. IMPRESSION Degenerative arthropathy changes as above. No acute fracture ordislocation. Thank you for letting us participate in the care of this patient. If youare a health care provider and have any questions regarding this report,please contact the number below. For patients who have questions please contactthe health pharmacy care coordinator that requested your imaging first. Electronically signed by: Favian Landeros MD, [facility]([phone]), at 03/13/2022 11:04 AM Bear JUNG IMG DX ORDERABLES documented in this encounter Visit Diagnoses Not on filedocumented in this encounter
--- OUTSIDE RECORDS SUMMARY | 2024-08-15 15:35 | XMS_ITS | Encounter Summary ---
[place] [address] Care Team Providers Care Market Risk Specialist Name Role Phone Unavailable Primary Care Provider Unavailabl e Encounter Details Date Type Department Care Team (Late st Contact Info) Description 07/24/2022 Telephone Dermatology at [facility] [address] [place] [address] Wanda De Anda MD Social History Tobacco Use Types Packs/Day Years Used Date Smoking Tobacco: Never Assessed Sex and Gender Information Value Date Recorded Sex Assigned at Not on file Gender Identity Not on file Sexual Orientation Not on file documented as of this encounter Miscellaneous Notes * Telephone Encounter - Fadia Zeng - 07/24/2022 3:20 PM EST this pts son wants to schedule the ED & C for this pt COURTNEY.. call [phone] documented in this encounter Plan of Treatment Not on file documented as of this encounter Visit Diagnoses Not on filedocumented in this encounter
--- OUTSIDE RECORDS SUMMARY | 2024-08-15 15:35 | XMS_ITS | Encounter Summary ---
Author Organization [place] [address] Care Team Providers Care Paster Operator Name Role Phone Unavailable Primary Care Provider Unavailabl e Encounter Details Date Type Department Care Team (Late st Contact Info) Description 01/28/2023 Interpretation Only [address] [address] Markus Brown MD [address] [place] [address] Social History Tobacco Use Types Packs/Day Years Used Date Smoking Tobacco: Never Assessed Sex and Gender Information Value Date Recorded Sex Assigned at Not on file Gender Identity Not on file Sexual Orientation Not on file documented as of this encounter Plan of Treatment Not on file documented as of this encounter Procedures Procedure Name Priority Date/Time Associated Diagnosis Comments XR HIP 2 VIEW BILATERAL STAT 01/28/2023 4:04 PM EDT documented in this encounter Results * XR Hip 2 View Bilateral (01/28/2023 4:04 PM EDT) PT CLASS E RAD ADMITDTTM RAD PT RAD INFO [id number]^FIND NOMI^MARKUS MCCOLLUM RAD EXAM DESC XRHIPTVB^XR RIGHT HIP UNILATERAL 2+ VIEWS^RIS RAD Anatomical Region Laterality Modality Hip Bilateral Radiographic Teresa ging Impressions 01/28/2023 4:10 PM EDT Right superior and inferior pubic rami comminuted fractures. Right hip is intact. Thank you for letting us participate in the care of this patient. ??If you are a health care provider and have any questions regarding this report, please contact the number below. ??For patients who have questions please contact the health progressive care unit registered nurse that requested your imaging first. ? Electronically signed by: MANUEL OLSEN MD, [facility] ([phone]), at 01/28/2023 4:10 PM Narrative 01/28/2023 4:10 PM EDT EXAMINATION: XR RIGHT HIP UNILATERAL 2+ VIEWS CLINICAL HISTORY: fall; R hip/R groin pain TECHNIQUE: 3 views of the right hip are submitted for review. COMPARISON: None FINDINGS: Right inferior and superior pubic ramus fractures which are mildly comminuted. The right hip is intact. Mild degenerative changes of the right hip. Degenerative changes of SI joints. Procedure Note Manuel Olsen MD - 01/28/2023 EXAMINATION: XR RIGHT HIP UNILATERAL 2+ VIEWS CLINICAL HISTORY: fall; R hip/R groin pain TECHNIQUE: 3 views of the right hip are submitted for review. COMPARISON: None FINDINGS: Right inferior and superior pubic ramus fractures which are mildlycomminuted. The right hip is intact. Mild degenerative changes of the right hip. Degenerative changes of SI joints. IMPRESSION Right superior and inferior pubic rami comminuted fractures. Right hipis intact. Thank you for letting us participate in the care of this patient. If youare a health care provider and have any questions regarding this report,please contact the number below. For patients who have questions please contactthe health progressive care unit registered nurse that requested your imaging first. Markus Brown MD IMG DX ORDERABL ES documented in this encounter Visit Diagnoses Not on filedocumented in this encounter
--- OUTSIDE RECORDS SUMMARY | 2024-08-15 15:35 | XMS_ITS | Encounter Summary ---
[place] [address] Care Team Providers Care Civil Engineer'S Aide Name Role Phone Unavailable Primary Care Provider Unavailabl e Encounter Details Date Type Department Care Team (Late st Contact Info) Description 02/01/2023 Telephone [place] [phone] Vibha Addison MD [facility] [place] [address] Social History Tobacco Use Types Packs/Day Years Used Date Smoking Tobacco: Never Assessed Sex and Gender Information Value Date Recorded Sex Assigned at Not on file Gender Identity Not on file Sexual Orientation Not on file documented as of this encounter Progress Notes * Vibha Addison MD - 02/01/2023 7:16 PM EDTRNs requesting order to put a secure guard on her. 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
--- OUTSIDE RECORDS SUMMARY | 2024-08-15 15:35 | XMS_ITS | Encounter Summary ---
Author Organization [facility] [place] [address] Care Team Providers Care Hand I Blocker Name Role Phone Unavailable Primary Care Provider Unavailabl e Encounter Details Date Type Department Care Team (Late st Contact Info) Description 08/19/2021 Interpretation Only [address] [phone] Isael Vo Jr., DO [address] [place] [address] Social History Tobacco Use Types Packs/Day Years [...] Comments CT HEAD WO CONTRAST (GENERIC) STAT 08/19/2021 9:21 PM EST documented in this encounter Results * CT Head wo Contrast (Generic) (08/19/2021 9:21 PM EST) PT CLASS E RAD ADMITDTTM RAD PT RAD INFO [id number]^B ROWN^ISAEL^ A RAD EXAM DESC CTHEAD^CT HEAD WO CNTRST^RIS RAD Anatomical Region Laterality Modality Head Computed Tomogra phy Impressions 08/19/2021 9:36 PM [...] have questions please contact the health daycare worker that requested your imaging first. ? Electronically signed by: Vangie Higginbotham MD, [facility] ([phone]), at 08/19/2021 9:36 PM Narrative 08/19/2021 9:36 [...] who have questions please contactthe health daycare worker that requested your imaging first. Electronically signed by: Vangie Higginbotham MD, [facility]([phone]), at 08/19/2021 9:36 PM Isael Vo Jr., DO IMG CT ORDERABLES documented in this encounter Visit Diagnoses Not on filedocumented in this encounter
--- OUTSIDE RECORDS SUMMARY | 2024-08-15 15:35 | XMS_ITS | Encounter Summary ---
Author Organization [facility] [place] [address] Care Team Providers Care Cut Off Operator Scorer Name Role Phone Unavailable Primary Care Provider Unavailabl e Encounter Details Date Type Department Care Team (Late st Contact Info) Description 08/15/2022 1:00 PM EST Office Visit Dermatology at [facility] [address] [place] [address] Wanda De Anda MD Squamous cell skin cancer Social History Tobacco Use Types Packs/Day Years Used Date Smoking Tobacco: Never Assessed Sex and Gender Information Value Date Recorded Sex Assigned at Not on file Gender Identity Not on file Sexual Orientation Not on file documented as of this encounter Progress Notes * Wanda De Anda MD - 08/15/2022 1:00 PM EST Images from the original note were not included. DEPARTMENT OF DERMATOLOGY Medical Dermatology Clinic Provider: Wanda De Anda MD Patient's preferred name Wendy Preferred contact method for results [x]Phone []myD-H []Letter Detailed phone message OK? Yes Are there any other people with whom we may discuss your care? No Past Medical History Date, location, treatment Melanoma No Dysplastic nevi No SCC Yes - SCC on the left lateral upper enriquez s/p ED&C 08/15/2022 BCC No AKs No UV Exposure & Protection + history of blistering sunburn Other relevant past medical history No Family History Details Melanoma No NMSC No Other relevant family history No Social History Occupation: Retired Hobbies: Other: Pre-Procedure Screening Details Allergy to lidocaine, epinephrine, Dermabond, chlorhexidine, or adhesives No Bleeding disorder or blood thinners No Implanted devices (Pacemaker, defibrillator, deep brain stimulator, cochlear implant) No History of Present Illness: Wendy Olvera is a 87 y.o. Patient returns to clinic today for ED&C of a biopsy proven SCC located on the left lateral upper enriquez. Last visit at Dermatology: 07/02/2022 Last visit with this provider: 07/02/2022 Medications: Reviewed in eD-H Allergies: Reviewed in eD-H Skin Examination: Focused skin examination of the left enriquez was normal with the exception of the findings below. Assessment/Plan #. Biopsy-Proven SCC - 1cm healing biopsy site on the left lateral upper enriquez. - Reviewed pathology and ED&C procedure with patient. [place] decision to proceed with ED&C today. - Patient denies allergies to lidocaine and epinephrine. - Patient denies having a pacemaker or defibrillator. Procedure: Destruction of lesion by electrodesiccation and curettage (ED&C) Location: As noted above. Discussed indications and expectations including risks and benefits. Verbal consent obtained. Skin prepped with alcohol. Local anesthesia with 1% xylocaine, 1/100,000 epinephrine. The entire lesion plus a small margin was treated. Post- curettage defect size: 1.4cm. There were no complications; patient tolerated the procedure well. Wound dressed. Expectations (including discomfort management) and wound care reviewed. Other: ??? N/A RTC: 1 year for a full skin exam; recall placed. Scribe attestation: Yasmeen Luevano [facility] has performed the documentation for this encounter in the presence of and acting as a scribe for Wanda De Anda MD. I performed the above scribed service and agree with the accuracy of the documentation in this encounter. Reviewed and signed by: Wanda De Anda MD Dermatology [facility] Patient seen and evaluated with staff learning solutions specialist: Rosibel Duckworth MD Dermatology [facility] * Rosibel Duckworth MD - 08/15/2022 1:00 PM EST I directly supervised the resident during this office visit. The resident physician presented the history and physical exam to me. I then saw and examined this patient with the resident. We reviewed the history and pertinent details and I confirmed the physical exam findings. I agree with the details of the history and physical exam as documented in the resident physician's note. Rosibel Duckworth MD Staff Physician [facility] documented in this encounter Plan of Treatment Not on file documented as of this encounter Visit Diagnoses Diagnosis Squamous cell skin cancer Squamous cell carcinoma of skin, site unspecified documented in this encounter
== END 2024-08-15 15:07 | disposition home or self-care (01) ==
LOC: ER 15:32
PROVIDERS: Emergency Provider Physician Assistant; PCP Nurse Practitioner
DX: B02.9 Zoster without complications (principal)
CPT/HCPCS: 99283